=== PATIENT | female | born 1965 | race Caucasian/White ===

== ENCOUNTER 2020-03-07 11:00 | Outpatient (CLI) | payer MEDICAID, SELFPAY | END 2020-03-07 11:01 | disposition home or self-care (01) | LOC: SLEEP 03-14 16:12 | PROVIDERS: Family Provider Family Medicine; PCP Family Medicine; Visit Provider Internal Medicine Critical Care Medicine | DX: J96.11 Chronic respiratory failure with hypoxia (principal) | CPT/HCPCS: 94762 ==

== ENCOUNTER → 2020-03-30 08:20 | Outpatient (BNVA) | payer MEDICAID, SELFPAY | PROVIDERS: Family Provider Family Medicine; PCP Family Medicine; Visit Provider Internal Medicine | DX: R06.02 Shortness of breath (principal); Z20.828 Contact with and (suspected) exposure to other viral communicable diseases | CPT/HCPCS: 87635 ==

== ENCOUNTER 2020-04-03 09:27 | Outpatient (CLI) | payer MEDICAID, SELFPAY ==
--- NOTE | 2020-04-03 09:35 | USCV_ITS ---
Alexia Soto Age: 55 Gender: F : 1965 Exam Date: 04/03/2020 10:24 Ordering Phys: Laurent Perez MD Technologist: Rin Coyle Exam Location: [facility] [place] Indication: SOB BP: 157 / 71 HR: 81 Rhythm: Sinus Technical Quality: Adequate MEASUREMENTS (Male / Female) Normal Values 2D ECHO LV Diastolic Diameter PLAX 5.7 cm 4.2 - 5.9 / 3.9 - 5.3 cm LV Systolic Diameter PLAX 3.8 cm LV Chamber Size 4.3 cm IVS Diastolic Thickness 0.9 cm 0.6 - 1.0 / 0.6 - 0.9 cm IVS Systolic Thickness 1.7 cm LVPW Diastolic Thickness 0.7 cm 0.6 - 1.0 / 0.6 - 0.9 cm LVPW Systolic Thickness 1.5 cm RV Chamber Size 1.7 cm LVOT Diameter 2.0 cm LV Ejection Fraction 2D Teich 62.0 % LV Ejection Fraction MOD 2C 53.1 % LV Ejection Fraction 2C AL 53.5 % LA Diameter 3.0 cm LA Width 2.8 cm LA Height 3.0 cm RA Width 2.7 cm RA Height 2.5 cm Aorta at Sinotubular Diameter 2.8 cm M-MODE LV Diastolic Diameter MM 5.9 cm 4.2 - 5.9 / 3.9 - 5.3 cm LV Systolic Diameter MM 3.8 cm LV Ejection Fraction MM Teich 65.6 % IVS Diastolic Thickness MM 1.0 cm 0.6 - 1.0 / 0.6 - 0.9 cm IVS Systolic Thickness MM 1.1 cm LVPW Diastolic Thickness MM 1.1 cm 0.6 - 1.0 / 0.6 - 0.9 cm LVPW Systolic Thickness MM 1.3 cm RV Diastolic Diameter MM 0.7 cm Aortic Annulus Diameter 2.9 cm LA Ao Ratio MM 1.0 MV E Point Septal Separation 0.5 cm DOPPLER AV Peak Velocity 116.0 cm/s LVOT Peak Velocity 68.0 cm/s AV Area Cont Eq vti 2.2 cm squared AV Area Cont Eq pk 1.9 cm squared MV Area PHT 3.6 cm squared Mitral E to A Ratio 0.8 MV E' Velocity 4.0 cm/s Mitral E to MV E' Ratio 9.8 Mitral E to LV E' Lateral Ratio 12.5 Mitral E to LV E' Septal Ratio 8.2 TV Peak E Velocity 40.0 cm/s PV Peak Velocity 86.0 cm/s FINDINGS Left Ventricle Normal left ventricular cavity size. Normal left ventricular systolic function. No regional wall motion abnormalities. Left ventricular ejection fraction is estimated at 65 %. Grade I/IV diastolic dysfunction (abnormal relaxation filling pattern), normal to mildly elevated filling pressures. Right Ventricle The right ventricle is normal in size and function. RVSP could not be calculated due to incomplete tricuspid regurgitation velocity profile. Right Atrium The right atrium is normal in size. Left Atrium The left atrium is normal in size. Mitral Valve Structurally normal mitral valve without significant stenosis or prolapse. There is no mitral regurgitation. Aortic Valve Severe aortic valve calcification. Mild aortic valve stenosis, mean gradient 2.8 mmHg, MUKESH 2.2 cm squared. No aortic valve regurgitation. Tricuspid Valve Structurally normal tricuspid valve without significant stenosis or regurgitation. Pulmonic Valve Structurally normal pulmonic valve without significant stenosis. There is no pulmonic regurgitation. Pericardium Normal pericardium without effusion. Aorta Normal ascending aorta dimension. CONCLUSIONS 1-Normal left ventricular cavity size. Normal left ventricular systolic function. No regional wall motion abnormalities. Left ventricular ejection fraction is estimated at 65 %. Grade I/IV diastolic dysfunction (abnormal relaxation filling pattern), normal to mildly elevated filling pressures. 2-Severe aortic valve calcification. Mild aortic valve stenosis, mean gradient 2.8 mmHg, MUKESH 2.2 cm squared. No aortic valve regurgitation. 3-There is no pericardial effusion. 4-Right atrial pressure is around 5 mm of mercury. 5-When compared to the prior echocardiogram dated July 06, 2015 there appeared to be mild aortic valve stenosis now. Mami Carcamo MD (Electronically Signed) Final Date: 03 April 2020 18:07 S
[2020-04-03 10:15] VITALS: BP 130/83; BP 131/83
--- NOTE | 2020-04-03 11:26 | PFTS_ITS ---
Date of Study:04/03/20 Date of Dictation: MECHANICS: Forced vital capacity (FVC) is reduced. Forced expiratory volume in one second (FEV1) is reduced. FEV1/FVC is normal. FLOW VOLUME LOOP: Narrow. The early expiratory peak flow is not reached. Likely secondary to hesitation. LUNG VOLUMES: Total lung capacity (TLC) is increased. Residual volume (RV) is increased. DIFFUSING CAPACITY FOR CARBON MONOXIDE: Normal. INTERPRETATION: The pulmonary function tests are consistent with nonspecific ventilatory limitation. The patient has evidence of mild restriction on the spirometry however the lung volumes do not support that. Lung volumes are consistent with air trapping and hyperinflation. Gas exchange (DLCO) is normal. Given the patient's significant history of smoking she likely has a combined obstructive and restrictive defect. MTDD
== END 2020-04-03 09:28 | disposition home or self-care (01) ==
LOC: RT 09:28
PROVIDERS: Visit Provider Internal Medicine Critical Care Medicine
DX: J96.11 Chronic respiratory failure with hypoxia (principal); J42 Unspecified chronic bronchitis; I51.81 Takotsubo syndrome; I35.0 Nonrheumatic aortic (valve) stenosis
CPT/HCPCS: 93306; 94010; 94618; 94726; 94729

== ENCOUNTER → 2020-05-14 08:42 | Outpatient (BNVA) | payer MEDICAID, SELFPAY | PROVIDERS: PCP Internal Medicine; Referring Provider Internal Medicine; Visit Provider Anesthesiology Pain Medicine | DX: M50.90 Cervical disc disorder, unspecified, unspecified cervical region (principal); M54.12 Radiculopathy, cervical region; M47.812 Spondylosis without myelopathy or radiculopathy, cervical region; M47.816 Spondylosis without myelopathy or radiculopathy, lumbar region; M54.9 Dorsalgia, unspecified; M62.830 Muscle spasm of back; F17.210 Nicotine dependence, cigarettes, uncomplicated | CPT/HCPCS: 99204 ==

== ENCOUNTER → 2020-05-30 14:07 | Outpatient (BNVA) | payer MEDICAID, SELFPAY | PROVIDERS: PCP Internal Medicine; Visit Provider Anesthesiology Pain Medicine | DX: M54.12 Radiculopathy, cervical region (principal); M50.90 Cervical disc disorder, unspecified, unspecified cervical region; F17.210 Nicotine dependence, cigarettes, uncomplicated | CPT/HCPCS: 62321 ==

== ENCOUNTER 2020-05-31 11:08 | Outpatient (CLI) | payer MEDICAID, SELFPAY ==
--- NOTE | 2020-05-31 11:45 | MR_ITS ---
WS: [id number] MRI CERVICAL SPINE HISTORY: M48.02 Spinal stenosis, cervical region COMPARISON: 04/07/2018 Straightening and slight reversal normal cervical lordosis. Mild disc space narrowing and desiccation . Hypertrophic endplate osteophytes most significant at C4-C6. Signal within the cervical cord is normal. Visualized posterior fossa is unremarkable. Craniocervical junction, C1 and C2 relationship, odontoid process and soft tissues are normal. C2-C3: Normal. C3-C4: Mild annular disc bulging with a central disc protrusion and osteophytes. No significant steno sis. C4-C5: Mild annular disc bulging and osteophytic ridging. Moderate central and bilateral foraminal st enosis. Mild progression of RIGHT foraminal stenosis. C5-C6: Mild annular disc bulging and osteophytic ridging. Complete effacement of CSF ventrally. Moder ate to severe central and bilateral foraminal stenosis. C6-C7: Mild annular disc bulging and osteophytic ridging. Mild encroachment upon the ventral thecal s ac. Mild central and bilateral foraminal stenosis with no progression. C7-T1: Mild annular disc bulging and osteophytic ridging. Moderate bilateral foraminal stenosis and m ild central stenosis. Similar to the prior study. There is also very mild annular disc bulging at the T1-T2 level without encroachment upon the thecal sac. MR/MR cervical spin wo con* [id number] IMPRESSION: 1. Multilevel degenerative disc disease and stenoses without significant boyle e since 04/07/2018. 2. Moderate to severe central and bilateral foraminal stenosis at C5-6. 3. Mild central and bilateral foraminal stenosis at C4-5, C6-7 and C7-T1.
== END 2020-05-31 11:09 | disposition home or self-care (01) ==
LOC: RADSHAW 11:10
PROVIDERS: PCP Internal Medicine; Visit Provider Orthopaedic Surgery
DX: M48.02 Spinal stenosis, cervical region (principal); M50.30 Other cervical disc degeneration, unspecified cervical region; M48.03 Spinal stenosis, cervicothoracic region
CPT/HCPCS: 72141

== ENCOUNTER → 2020-06-14 13:31 | Outpatient (BNVA) | payer MEDICAID, SELFPAY | PROVIDERS: PCP Internal Medicine; Visit Provider Anesthesiology Pain Medicine | DX: M54.9 Dorsalgia, unspecified (principal); M47.812 Spondylosis without myelopathy or radiculopathy, cervical region; M54.12 Radiculopathy, cervical region; M50.90 Cervical disc disorder, unspecified, unspecified cervical region; M47.816 Spondylosis without myelopathy or radiculopathy, lumbar region; M62.830 Muscle spasm of back; F17.210 Nicotine dependence, cigarettes, uncomplicated | CPT/HCPCS: 99213 ==

== ENCOUNTER → 2020-09-10 16:13 | Outpatient (BNVA) | payer MEDICAID, SELFPAY | PROVIDERS: PCP Family Medicine; Visit Provider Orthopaedic Surgery | DX: Z20.822 Contact with and (suspected) exposure to COVID-19 (principal); Z01.812 Encounter for preprocedural laboratory examination | CPT/HCPCS: 87635 ==

== ENCOUNTER → 2020-10-05 12:17 | Outpatient (BNVA) | payer MEDICAID, SELFPAY | PROVIDERS: PCP Family Medicine; Visit Provider Orthopaedic Surgery | DX: Z20.822 Contact with and (suspected) exposure to COVID-19 (principal); M48.02 Spinal stenosis, cervical region | CPT/HCPCS: 87635 ==

== ENCOUNTER 2020-10-08 08:57 | Day surgery (SDC) | payer MEDICAID, SELFPAY ==
[2020-09-07 11:42] VITALS: BMI 34.9
--- NOTE | 2020-09-07 11:55 | ANES.PREANE2 ---
Pre-Anesthetic Assessment Pre-Anesthetic Assessment: Height/Weight: Height 1.65 m Weight 95.254 kg Preop Diagnosis: Cervical stenosis Proposed Procedure: Operation Date: 09/12/20 13:05 Proposed Procedures p Anterior Cervical Discectomy & FusionACDF C6/7 74252,74294, 13050, 2845, 98765 M48.062(Not Applicable) - Bruce Santizo, DO Familial anesthetic complications: NOne Social: Social History: Tobacco and No alcohol Exam: Pre-Anes Outpt Exam: alert, oriented x 3, clear to auscultation bilaterally and regular rate & rhythm Airway: Cervical ROM: WNL (limited extension) MP: 2 Dentition: False Pulmonary: Pulmonary: COPD (3 L NC continously) and Sleep apnea Comments: pleurisy + pneunonia in 2016 CV/HEM: CV/HEM: Angina (Stable) (normal cath - was told she had spasms (? printzmetal's)) and HTN GI: GI: GERD Metabolic: Metabolic: Thyroid Musc/skel: Musc/skel: Lower Back Pain Anesthetic Plan: ASA status: 3 Anesthesia: General Risk of > 500 ml blood loss (7ml/kg in children): No PFSH Anesthesia PFSH: Medical History Anemia Bipolar 1 disorder Blood in stool Chronic obstructive pulmonary disease Depression with anxiety Glaucoma Hyperlipidemia Hypertension Hypothyroidism Surgical History History of bladder surgery History of laparoscopic cholecystectomy History of tubal ligation History of vaginal hysterectomy (~2005) Family History Family/Other Cancer Social History Smoking and tobacco status: current every day smoker cigarettes Packs smoked per day: 1 Years cigarettes smoked: 38 Alcohol intake: never Lives independently: Yes Household members: none Marital status: Legally Current occupational status: disabled History of recent travel: No Current gender identity: Female Data Anesthesia Cardiac Studies: No Data to Display
[2020-09-12 15:08] LABS: Coronavirus Test Green County Not Detected
--- NOTE | 2020-10-05 11:24 | ANES.PREANE2 ---
Pre-Anesthetic Assessment Pre-Anesthetic Assessment: Height/Weight: Height 1.65 m Weight 95.254 kg Preop Diagnosis: Cervical stenosis Proposed Procedure: Operation Date: 09/14/20 07:00 Proposed Procedures p Anterior Cervical Discectomy & FusionACDF C6/7 86361,92313, 06503, 2845, 80477 M48.062(Not Applicable) - Bruce Santizo DO Operation Date: 10/08/20 10:35 Proposed Procedures p Anterior Cervical Discectomy & Fusion C6/C7 44727 76536 45236 20416 45697 M48.062(Not Applicable) - Bruce Santizo DO Familial anesthetic complications: NOne Social: Social History: Tobacco Exam: Pre-Anes Outpt Exam: alert, oriented x 3, clear to auscultation bilaterally and regular rate & rhythm Airway: Cervical ROM: WNL MP: 4 Dentition: False Pulmonary: Pulmonary: COPD (3 L NC continously) and Sleep apnea CV/HEM: CV/HEM: Angina (Stable) (normal cath - told she has spasms (?printzmetals)) and HTN GI: GI: GERD Metabolic: Metabolic: Thyroid Anesthetic Plan: ASA status: 3 Anesthesia: General Risk of > 500 ml blood loss (7ml/kg in children): No PFSH Anesthesia PFSH: Medical History Anemia Bipolar 1 disorder Blood in stool Chronic obstructive pulmonary disease Depression with anxiety Glaucoma Hyperlipidemia Hypertension Hypothyroidism Surgical History History of bladder surgery History of laparoscopic cholecystectomy History of tubal ligation History of vaginal hysterectomy (~2005) Family History Family/Other Cancer Social History Smoking and tobacco status: current every day smoker cigarettes Packs smoked per day: 1 Years cigarettes smoked: 38 Alcohol intake: never Lives independently: Yes Household members: none Marital status: Legally Current occupational status: disabled History of recent travel: No Current gender identity: Female Data Anesthesia Cardiac Studies: No Data to Display
[2020-10-08] VITALS (11 sets, daily range): BP systolic 127–169; BP diastolic 80–96; PULSE 82–97; RESP 16–25; TEMP 36.2–36.6; O2SAT 89–95
--- NOTE | 2020-10-08 | SCC_ITS ---
Procedure Done: 1. Anterior discectomy C6/7 2. Insertion of Cage C6/7 3. Instrumentation with anterior plate from C6-C7 4. Use of allograft Surgeon: Bruce Santizo Anesthesia: General Estimated blood loss (mL): 5 Condition: stable Disposition: PACU Procedure: 1. Anterior discectomy C6/7 2. Insertion of Cage C6/7 3. Instrumentation with anterior plate from C6-C7 4. Use of allograft 27.0 seconds of fluoroscopic guidance, for a cumulative dose of 5.95 mGy, was provided to Dr. Santizo by the radiology department. C-arm images of the cervical spine were saved for the patient's permanent record. [facility]
--- NOTE | 2020-10-08 | XR_ITS ---
WS: [id number] INTRAOPERATIVE TECHNIQUE: 4 Spot fluoroscopic images for intraoperative purposes. FLUOROSCOPY TIME: 15.3 seconds CLINICAL INFORMATION: ACDF C6/C7 COMPARISON: None. FINDINGS: Intraoperative changes ACDF C6-7. Endotracheal tube. XR/XR cervical spine 3V* [id number] IMPRESSION: Images obtained for intraoperative purposes.
[2020-10-08] MEDS: sodium chloride 0.9% 1,000 ML 30 ML IV (09:44)
--- NOTE | 2020-10-08 10:08 | P.ANESUD_ITS ---
Pre-Anesthetic Update Pre-Anesthetic Assessment: Date of Surgery/Procedure: 10/08/20 Preop Jeni gnosis: Cervical stenosis Proposed Procedure: Operation Date: 09/14/20 07:00 Proposed Procedures p Anterior Cervical Discectomy & FusionACDF C6/7 23247,61300, 15462, 2845, 50163 M48.062(Not Applicable) - Bruce Santizo, DO Operation Date: 10/08/20 10:35 Proposed Procedures p Anterior Cervical Discectomy & Fusion C6/C7 81029 71073 08280 55898 86925 M48.062(Not Applicable) - Bruce Santizo, DO Any changes to Pre-Anesthetic Assessment?: No Last Intake: Intake Last Liquid Date 10/08/20 Last Liquid Time 08:45 Last Solid Date 10/08/20 Last Solid Time 19:00 Vitals: Temperature 97.3 F L 10/08/20 09:22 Temperature Source Temporal Artery S can 10/08/20 09:22 Pulse Rate 93 10/08/20 09:22 Respiratory Rate 18 10/08/20 09:22 Blood Pressure 132/83 10/08/20 09:22 Blood Pressure Micheline n 99 10/08/20 09:22 Pulse Oximetry 95 10/08/20 09:22 Oxygen Delivery Me thod 10/08/20 09:22 Exam: Pre-Anes Outpt Exam: alert, oriented x 3, clear to auscultation bilate rally and regular rate & rhythm Cardiac Studies: No Data to Display
--- NOTE | 2020-10-08 10:13 | PM.HP ---
Providers/Chief Complaint Primary Care Provider: Judah Cohen MD Chief Complaint: ACDF C6/7 22813,49867, 41923, 3947, 15892 History of Present Illness Alexia Soto is a 55 year old female She is unable to hold a telephone to her ear or style her hair due to numbness and weakness. Onset: 20 years Duration: years Characteristics: Severity: 01/10 Location: neck Radiating symptoms: arms -bilateral right worse than left Aggravating factors: holding phone, postional, Alleviating factors: heat, Neuro deficits: denies, incontinence of bowel/bladder, saddle anesthesia. Prior tx: injections with no relief Review of Systems Narrative: Review of Systems: General: patient complains of neck pain Hematopoetic: patient denies any anemia, bleeding or easy bruisabitity CORK GRINDER: Positive for numbness to bilateral upper extremities Eye: negative for drainage Ears: patient denies any hearing loss, pain, vertigo, tinnitus Nose and throat: patient denies any congestion, postnasal drip, sore throat, epistaxis. Cardiovascular: Patient denies chest pain, edema or palpitations Respiratory: patient denies any shortness of breath, cough, sputum production GI: patient denies any nausea, vomiting, diarrhea, constipation or abdominal pain Muskuloskeletal: weakness lntegumentary: no abrasion, laceration Endocrine: patient denies polydipsia, polyphasia or nervousness. Psychiatric: negative for Medications/Allergies Home Medications Medication Instructions Recorded Confirmed Last Taken Type albuterol sulfate 90 mcg/actuation 2 puff INHALATION Q6H PRN 11/10/19 10/08/20 10/07/20 History aerosol inhaler cyanocobalamin (vitamin B-12) 1,000 mcg IM .monthly ml 11/10/19 10/08/20 09/20/20 History 1,000 mcg/mL injection solution guaifenesin 600 mg tablet, 600 mg PO BID 11/10/19 10/08/20 10/07/20 History extended release 12 hr ibuprofen 800 mg tablet 800 mg PO TID 11/10/19 10/08/20 10/07/20 History levothyroxine 100 mcg capsule 100 mcg PO DAILY 11/10/19 10/08/20 10/08/20 History lisinopril 10 mg tablet 10 mg PO DAILY 11/10/19 10/08/20 10/08/20 History methocarbamol 500 mg tablet 500 mg PO TID 11/10/19 10/08/20 10/08/20 History nitroglycerin 0.6 mg sublingual 0.6 mg SUBLINGUAL Q5M PRN 11/10/19 09/07/20 Unknown History tablet pregabalin 75 mg capsule 75 mg PO BID 11/10/19 10/08/20 10/07/20 History trazodone 50 mg tablet 50 mg PO DAILY 11/10/19 10/08/20 10/07/20 History Stiolto Respimat 2 puff INHALATION BID 10/05/20 10/08/20 10/08/20 History furosemide 20 mg PO DAILY 10/05/20 10/08/20 10/07/20 History pantoprazole 40 mg PO DAILY 10/05/20 10/08/20 10/07/20 History methadone 5 mg PO DAILY 10/08/20 10/08/20 10/08/20 History methadone 100 mg PO DAILY 10/08/20 10/08/20 10/08/20 History Allergies Allergy/AdvReac Type Severity Reaction Status Date / Time No Known Allergies Allergy Verified 06/14/20 13:40 PFSH Acute PFSH: Medical History Anemia Bipolar 1 disorder Blood in stool Chronic obstructive pulmonary disease Depression with anxiety Glaucoma Hyperlipidemia Hypertension Hypothyroidism Surgical History History of bladder surgery History of laparoscopic cholecystectomy History of tubal ligation History of vaginal hysterectomy (~2005) Family History Family/Other Cancer Social History Smoking and tobacco status: current every day smoker cigarettes Packs smoked per day: 1 Years cigarettes smoked: 38 Alcohol intake: never Lives independently: Yes Household members: none Marital status: Legally Current occupational status: disabled History of recent travel: No Current gender identity: Female Vitals/I&O/Wt Last Vital Signs Temp 97.3 F L 10/08/20 09:22 Pulse 93 10/08/20 09:22 Resp 18 10/08/20 09:22 BP 132/83 10/08/20 09:22 Pulse Ox 95 10/08/20 09:22 Physical Exam Narrative: EXAM NARRATIVE: CONSTITUTIONAL: The patient is a normal appearing [] in no apparent distress. GENERAL: Patient in no acute distress. CARDIAC: Regular rate and rhythm. CHEST: Normal inspiratory effort, normal respiratory rate. ABDOMEN: Soft and nontender. SKIN: Clear, warm and intact. NEURO?PSYCH: The patient is alert and oriented to person, place and time. Sensorv /SILT Motor StrengthShoulder abduction C5 5/5Wrist extension C6 5/5Elbow extension C7 5/5Hand Merchandise Flow Team Member C8 5/5Finger abduction T15/5 Radial/ Ulnar/ Median n intact LowerSensory (SILT)Motor StrengthHin flexion L2/3Ant/inner thigh 5/5Hip adduction L2/3 5/5Knee extension L4 Lat thigh, 5/5Toe dorsiflexion L5 5/5Ankle dorsiflexion L5/ H92Upkseyl flexion S1 5/5 DTRBleeps 2+Triceps 2+Brachioradialis 2+Patellar 2+Achilles 2+ MUSCULOSKELETAL: [] UPPEREXTREMITIES: The patient had full active ROM in fingers, wrist, elbow, and shoulder. The patient demonstrated ability to fully flex/extend/abduct/adduct fingers, make ok sign, cross 2nd/3rd digits, extend 1st digit fully.. Radial pulse 2+, CR<2 seconds. LOWER EXTREMITIES: Pt has full, active ROM of toes, ankle, knee, and hip. Dorsalis pedis/posterior tibialis pulses 2+, CR<2 seconds. SPINE: Skin warm, dry, intact. A&P Assessment and plan (1) Cervical stenosis of spinal canal: C6/7 ACDF Status: Acute Attestations Medical Necessity Statement*: failed conservative tx Coding Level of Care Code Acute Health Concierge for [facility] Fwd Diagnoses Cervical stenosis of spinal canal M48.02
--- NOTE | 2020-10-08 10:16 | W.PM.OPSUD ---
Surgery/Procedure H&P Update DATE OF PROCEDURE: October 08, 2020 DATE H&P PERFORMED: 10/08/20 H&P UPDATE INFORMATION: I have reviewed H&P completed within last 30 days, I have examined patient prior to procedure and No changes to prior documentation PREOP DIAGNOSIS: Cervical stenosis PLANNED PROCEDURE: Operation Date: 09/14/20 07:00 Proposed Procedures p Anterior Cervical Discectomy & FusionACDF C6/7 66708,02220, 43667, 2845, 79227 M48.062(Not Applicable) - Bruce Santizo DO Operation Date: 10/08/20 10:35 Proposed Procedures p Anterior Cervical Discectomy & Fusion C6/C7 28906 33430 12987 69551 17214 M48.062(Not Applicable) - Bruce Santizo DO
--- NOTE | 2020-10-08 12:45 | PM.OP ---
Operative Report Date of procedure: October 08, 2020 Pre-op Diagnosis: Cervical stenosis Post-op diagnosis: same Procedure Done: 1. Anterior discectomy C6/7 2. Insertion of Cage C6/7 3. Instrumentation with anterior plate from C6-C7 4. Use of allograft Surgeon: Bruce Santizo Anesthesia: General Estimated blood loss (mL): 5 Condition: stable Disposition: PACU Procedure: 1. Anterior discectomy C6/7 2. Insertion of Cage C6/7 3. Instrumentation with anterior plate from C6-C7 4. Use of allograft The patient was taken to the operating room, where he underwent general endotracheal anesthesia without complications. He was then positioned supine on the operating table, and all areas of impingement were well padded. The arms were carefully padded and tucked at his sides. A roll was placed between the shoulder blades.. An x-ray was done to determine the appropriate level for the skin incision. The entire neck was then sterilely prepped and draped in the usual fashion. Neuromonitoring was attached prior to prepping. A transverse skin incision was made and carried down to the platysma muscle. This was then split in line with its fibers. Blunt dissection was carried down medial to the carotid sheath and lateral to the trachea and esophagus until the anterior cervical spine was visualized. A needle was placed into a disc and an x-ray was done to determine its location. The longus colli muscles were then elevated bilaterally with the electrocautery unit. Self-retaining retractors were placed deep to the longus colli muscle. Attention was brought to the 6/7 level that was confirmed on x-ray. A caspar pin was placed into the C6 vertebrae and the C7 vertebrae. The disk space was then distracted. The microscope was then brought in. A radical anterior discectomies were performed at C6/7. This included complete removal of the anterior annulus, nucleus, and posterior annulus. The posterior longitudinal ligament was removed as were the posterior osteophytes. Foraminotomies were then accomplished bilaterally. This was done using a high speed ailyn, kerrison rongeurs and curretes Once all of this was accomplished, the curved currette was used to check for any residual compression. The central canal was wide open as were the foramen. A high-speed bur was used to remove the cartilaginous endplates above and below the interspace. Bleeding cancellous bone was exposed. The disc space were measured and appropriate size cage were placed sterilely onto the field. Allograft graft was packed into the cages. The cage was then placed and there was good juxtaposition against the bleeding decorticated surfaces and good distraction of each interspace. The [place] pins were removed. Bone wax was used to prevent any bleeding from occurring at the pin sites. The appropriate size anterior cervical locking plate was chosen and bent into gentle lordosis. Two screws were then placed into each of the vertebral bodies at C6/7. There was excellent purchase. A final x-ray was done confirming good position of the hardware and Cages. The locking screws were then applied, also with excellent purchase. Following a final copious irrigation, there was good hemostasis and no dural leaks. The carotid pulse was strong. The wounds were then closed in layers using 2-0 Vicryl suture for the platysma muscle, 2-0 Vicryl suture for the subcutaneous tissue, and 4-0 monocryl suture in a subcuticular skin closure. Glue was placed followed by application of a sterile dressing. The drain was hooked to bulb suction. A soft collar was applied. The patient was then carefully returned to the supine position on his hospital bed where he was reversed and extubated and taken to the recovery room having tolerated the procedure well.
[2020-10-08] MEDS: ipratropium 0.5 mg/2.5 mL Neb INHALATION (13:26)
--- NOTE | 2020-10-08 17:01 | P.ANESUD_ITS ---
Pre-Anesthetic Update Pre-Anesthetic Assessment: Date of Surgery/Procedure: 10/08/20 Preop Jeni gnosis: Cervical stenosis Proposed Procedure: Operation Date: 09/14/20 07:00 Proposed Procedures p Anterior Cervical Discectomy & FusionACDF C6/7 95947,39887, 01108, 2845, 19841 M48.062(Not Applicable) - Bruce Santizo, DO Operation Date: 10/08/20 10:35 Proposed Procedures p Anterior Cervical Discectomy & Fusion C6/C7 92151 88351 58376 92340 25343 M48.062(Not Applicable) - Bruce Santizo, DO Any changes to Pre-Anesthetic Assessment?: No Last Intake: Intake Last Liquid Date 10/08/20 Last Liquid Time 08:45 Last Solid Date 10/08/20 Last Solid Time 19:00 Vitals: Temperature 97.8 F 10/08/20 14:24 Temperature Source Temporal Artery S can 10/08/20 14:24 Pulse Rate 88 10/08/20 14:24 Respiratory Rate 20 H 10/08/20 14:24 Blood Pressure 127/80 10/08/20 14:24 Blood Pressure Micheline n 95 10/08/20 14:24 Pulse Oximetry 93 10/08/20 14:24 Oxygen Delivery Me thod 10/08/20 14:24 Oxygen Flow Rate 3 10/08/20 14:24 Exam: Pre-Anes Outpt Exam: alert, oriented x 3, clear to auscultation bilaterally and regular rate & rhythm Cardiac Studies: No Data to Display
--- NOTE | 2020-10-08 17:02 | ANE.PACU2 ---
Inpatient post-anesthesia follow up: Airway intact: Yes Vital signs: Temperature 97.8 F Pulse Rate 88 Respiratory Rate 20 Blood Pressure 127/80 Pulse Oximetry 93 Oxygen Delivery Me thod Nasal Cannula Oxygen Flow Rate 3 Fraction of Inspir ed Oxygen Hydration adequate: Yes Nausea and vomiting: No Pain level: 2 Mental status: Baseline
== END 2020-10-08 15:00 | disposition home or self-care (01) ==
PROVIDERS: PCP Family Medicine; Visit Provider Orthopaedic Surgery
PROC: 0RB30ZZ Excision of Cervical Vertebral Disc, Open Approach (ICD-10-PCS; CPT 22551; principal; 2020-10-08 10:25)
DX: M48.02 Spinal stenosis, cervical region (principal); E78.5 Hyperlipidemia, unspecified; I10 Essential (primary) hypertension; E03.9 Hypothyroidism, unspecified; F17.210 Nicotine dependence, cigarettes, uncomplicated; J44.9 Chronic obstructive pulmonary disease, unspecified; Z99.81 Dependence on supplemental oxygen; G47.30 Sleep apnea, unspecified
CPT/HCPCS: 20930; 22551; 22853 ×2; 72040; 76000; 87635; C1713; C9359; J0330; J0690; J1100; J2310; J2405; J2704; J3010; J3490; J7030; J7611; J7644

== ENCOUNTER → 2020-11-22 10:11 | Outpatient (BNVA) | payer MEDICAID, SELFPAY | PROVIDERS: PCP Family Medicine; Visit Provider Orthopaedic Surgery | DX: Z48.89 Encounter for other specified surgical aftercare (principal); M48.02 Spinal stenosis, cervical region | CPT/HCPCS: 72040 ==

== ENCOUNTER → 2021-01-10 10:45 | Outpatient (BNVA) | payer MEDICAID, SELFPAY | PROVIDERS: PCP Family Medicine; Visit Provider Orthopaedic Surgery | DX: Z48.89 Encounter for other specified surgical aftercare (principal); M48.062 Spinal stenosis, lumbar region with neurogenic claudication; Z98.1 Arthrodesis status; M47.812 Spondylosis without myelopathy or radiculopathy, cervical region; M47.816 Spondylosis without myelopathy or radiculopathy, lumbar region | CPT/HCPCS: 72040; 72110 ==

== ENCOUNTER 2021-02-14 08:03 | Outpatient (CLI) | payer MEDICAID, SELFPAY ==
--- NOTE | 2021-02-14 08:00 | MR_ITS ---
WS: [id number] MRI LUMBAR SPINE NONCONTRAST TECHNIQUE: Sagittal T1, T2 and STIR imaging. Axial T1 and T2 imaging. CLINICAL INFORMATION: SPINAL STENOSIS LUMBAR REGION W/NEUROGENIC CLAUDICATION COMPARISON: None. FINDINGS: Mild lumbar curve. No acute compression. No high-grade central canal stenosis. Endplate degenerative changes L4-L5 and L5-S1 worse L5-S1. L1-L2: Normal. L2-L3: No significant disc bulging. Mild facet arthropathy. Spinal canal and foramen are patent. L3-L4: No significant disc bulging. Moderate facet arthropathy. Spinal canal and foramen are patent. L4-L5: Mild annular bulging with slight effacement of the ventral thecal sac. Slight impingement on t he traversing right greater than left L5 nerve roots. Foramen are patent. Moderate facet arthropathy. Ligamentum flavum hypertrophy. This is similar to 2017. L5-S1: Mild disc bulging with osteophytic ridging. Slight effacement of the ventral thecal sac. Right eccentric disc bulging slightly encroaches on the far exiting right L5 nerve root unchanged from pre vious. Left foramen is patent. Moderate facet arthropathy. Spinal canal is patent. Visualized pelvic bony structures: Normal. Paravertebral soft tissues: Normal. MR/MR lumbar spine wo con* [id number] IMPRESSION: 1. No significant interval changes since 2017. 2. Mild lumbar curve. No acute compression. No high-grade central canal stenos is. 3. Annular bulging L4-5 with slight impingement traversing L5 nerve roots bila terally. Foramen are patent. 4. Mild disc bulging with osteophytic ridging L5-S1 eccentric to the right sli ghtly encroaches on the far exiting right L5 nerve root. This is unchanged from previous. 5. Moderate facet arthropathy L4-L5 and L5-S1 with ligamentum flavum hypertrop hy.
== END 2021-02-14 08:04 | disposition home or self-care (01) ==
LOC: RADSHAW 08:06
PROVIDERS: PCP Family Medicine; Visit Provider Orthopaedic Surgery
DX: M48.062 Spinal stenosis, lumbar region with neurogenic claudication (principal); M51.26 Other intervertebral disc displacement, lumbar region; M47.816 Spondylosis without myelopathy or radiculopathy, lumbar region; M47.817 Spondylosis without myelopathy or radiculopathy, lumbosacral region
CPT/HCPCS: 72148

== ENCOUNTER → 2021-03-20 10:50 | Outpatient (BNVA) | payer MEDICAID, SELFPAY | PROVIDERS: PCP Family Medicine; Visit Provider Orthopaedic Surgery | DX: Z01.812 Encounter for preprocedural laboratory examination (principal); Z20.822 Contact with and (suspected) exposure to COVID-19 | CPT/HCPCS: 87635 ==

== ENCOUNTER 2021-03-25 06:13 | Day surgery (SDC) | payer MEDICAID, SELFPAY ==
[2021-03-22 12:03] VITALS: BMI 33.3
--- NOTE | 2021-03-22 12:27 | ANES.PREANE2 ---
Pre-Anesthetic Assessment Pre-Anesthetic Assessment: Height/Weight: Height 1.65 m Weight 90.718 kg Preop Diagnosis: Cervical stenosis Proposed Procedure: Operation Date: 03/25/21 07:00 Proposed Procedures p Lumbar Spine Decompression L3/4 L4/5 L5/[id number] M48.062(Not Applicable) - Bruce Santizo, DO Familial anesthetic complications: None Social: Social History: Tobacco and No alcohol Exam: Pre-Anes Outpt Exam: alert, oriented x 3, clear to auscultation bilaterally and regular rate & rhythm Airway: Cervical ROM: WNL MP: 4 Dentition: False Pulmonary: Pulmonary: COPD (3 L NC continously) and Sleep apnea CV/HEM: CV/HEM: Angina (Stable) and HTN Comments: normal cath - [employer] GI: GI: GERD Metabolic: Metabolic: Thyroid Anesthetic Plan: ASA status: 4 Anesthesia: General Risk of > 500 ml blood loss (7ml/kg in children): No PFSH Anesthesia PFSH: Medical History (Updated 02/19/21 @ 09:19 by Jignesh Agudelo LPN) Anemia Bipolar 1 disorder Blood in stool Chronic obstructive pulmonary disease Depression with anxiety Glaucoma Hyperlipidemia Hypertension Hypothyroidism Surgical History History of bladder surgery History of laparoscopic cholecystectomy History of tubal ligation History of vaginal hysterectomy (~2005) Family History Family/Other Cancer Social History Smoking and tobacco status: current every day smoker (1/2 jude) cigarettes Packs smoked per day: 1 Years cigarettes smoked: 38 Alcohol intake: never Lives independently: Yes Household members: none Marital status: Legally Current occupational status: disabled History of recent travel: No Current gender identity: Female Data Anesthesia Cardiac Studies: No Data to Display
[2021-03-25] VITALS (10 sets, daily range): BP systolic 93–179; BP diastolic 58–89; PULSE 76–90; RESP 17–20; TEMP 36.1–36.4; O2SAT 94–98
--- NOTE | 2021-03-25 | SCC_ITS ---
Procedure done: 1. Bilateral L3/4 laminectomy with partial facectomies 2.Bilateral L4/5 laminectomy with partial facectomies 3. Bilateral L5/S1 laminectomy with partial facectomies. 28.1 seconds of fluoroscopic guidance, for a cumulative dose of 14.67 mGy, was provided to Dr. Santizo by the radiology department. C-arm images of the lumbar spine were saved for the patient's permanent record. [facility]
--- NOTE | 2021-03-25 | XR_ITS ---
WS: [id number] Exam: XR lumbar spine 1V port [id number] Date/Time of Exam: 03/25/2021 12:00 AM Reason For Exam: lumbar stenosis Anterior posterior intraoperative C-arm images of the lumbar spine are submitted for evaluation. The images depict a metallic port superimposing the L3-4, the L4-5 and the L5-S1 disc levels. No othe r significant finding on this limited series.
--- NOTE | 2021-03-25 06:40 | PM.HP ---
Providers/Chief Complaint Primary Care Provider: Judah Cohen MD Chief Complaint: lumbar stenosis History of Present Illness Alexia Soto is a 56 year old female She describes weakness when trying to get into her car. Onset: years Duration: years Characteristics: aching, throbbing, burning, weakness, numbness and tingles to lower extremities, Severity:02/09 Location: low back Radiating symptoms: bilateral lower extremities, left lateral lower extremity, right medial lower extremity. Aggravating factors: walking,sitting, lifting lower extremities Alleviating factors: heat, rest, changing position without relief Neuro deficits:denies: incontinence of bowel/bladder, saddle anesthesia. Prior tx: 4-5 epidural injection without relief with the last one being several years ago. Associated symptoms: Denies abdominal pain, chills, fever(s), nausea or vomiting Review of Systems Narrative: General ROS: negative for weight changes, fever ENT ROS: negative for nasal congestion, drainage or bleeding, sore throat, dysphagia or ear pain Eyes: PERRL Hematological and Lymphatic ROS: negative for swollen glands or abnormal bleeding Endocrine ROS: negative for polyuria/polydpsia or new changes in weight Respiratory ROS: negative for cough, shortness of breath, or wheezing Cardiovascular ROS: negative for chest pain or dyspnea on exertion Gastrointestinal ROS: negative for reflux, abdominal pain, change in bowel habits, or black or bloody stools Musculoskeletal ROS: negative for back pain, neck pain, or joint pain or swelling except for current problem Neurological ROS: negative for TIA or stoke symptoms Skin: no rashe Medications/Allergies Home Medications Medication Instructions Recorded Confirmed Last Taken Type albuterol sulfate 90 mcg/actuation 2 puff INHALATION Q6H PRN 11/10/19 03/22/21 10/07/20 History aerosol inhaler cyanocobalamin (vitamin B-12) 1,000 mcg IM .monthly ml 11/10/19 03/22/21 09/20/20 History 1,000 mcg/mL injection solution guaifenesin 600 mg tablet, 600 mg PO BID 11/10/19 03/22/21 10/07/20 History extended release 12 hr ibuprofen 800 mg tablet 800 mg PO TID 11/10/19 03/22/21 10/07/20 History levothyroxine 100 mcg capsule 100 mcg PO DAILY 11/10/19 03/22/21 10/08/20 History methocarbamol 500 mg tablet 500 mg PO TID 11/10/19 03/22/21 10/08/20 History nitroglycerin 0.6 mg sublingual 0.6 mg SUBLINGUAL Q5M PRN 11/10/19 03/22/21 Unknown History tablet pregabalin 75 mg capsule 75 mg PO BID 11/10/19 03/22/21 10/07/20 History trazodone 50 mg tablet 50 mg PO DAILY 11/10/19 03/22/21 10/07/20 History pantoprazole 40 mg PO DAILY 10/05/20 03/22/21 10/07/20 History methadone 5 mg PO DAILY 10/08/20 03/22/21 10/08/20 History methadone 100 mg PO DAILY 10/08/20 03/22/21 10/08/20 History furosemide 20 mg tablet See Rx Instructions .ROUTE 01/14/21 03/22/21 Unknown Rx .COMPLEX #30 tablet tiotropium 2.5 mcg-olodaterol 2.5 See Rx Instructions .ROUTE 01/14/21 03/22/21 Unknown Rx mcg/actuation mist for inhalation .COMPLEX #4 milliliter lisinopril 10 mg tablet 20 mg PO DAILY tab 02/19/21 03/22/21 Unknown History atorvastatin 40 mg PO DAILY 03/22/21 03/22/21 Unknown History fluticasone propion-salmeterol INHALATION 03/22/21 Unknown History [Advair Diskus] escitalopram oxalate 20 mg PO DAILY 03/25/21 03/25/21 03/25/21 04:30 History Allergies Allergy/AdvReac Type Severity Reaction Status Date / Time No Known Allergies Allergy Verified 03/22/21 12:07 PFSH Acute PFSH: Medical History (Updated 02/19/21 @ 09:19 by Jignesh Agudelo LPN) Anemia Bipolar 1 disorder Blood in stool Chronic obstructive pulmonary disease Depression with anxiety Glaucoma Hyperlipidemia Hypertension Hypothyroidism Surgical History History of bladder surgery History of laparoscopic cholecystectomy History of tubal ligation History of vaginal hysterectomy (~2005) Family History Family/Other Cancer Social History Smoking and tobacco status: current every day smoker (1/2 jude) cigarettes Packs smoked per day: 1 Years cigarettes smoked: 38 Alcohol intake: never Lives independently: Yes Household members: none Marital status: Legally Current occupational status: disabled History of recent travel: No Current gender identity: Female Vitals/I&O/Wt Last Vital Signs Temp 97 F L 03/25/21 06:21 Pulse 76 03/25/21 06:21 Resp 18 03/25/21 06:21 BP 164/83 03/25/21 06:21 Pulse Ox 96 03/25/21 06:21 Physical Exam Narrative: EXAM NARRATIVE: CONSTITUTIONAL: The patient is a normal appearing [] in no apparent distress. GENERAL: Patient in no acute distress. CARDIAC: Regular rate and rhythm. CHEST: Normal inspiratory effort, normal respiratory rate. ABDOMEN: Soft and nontender. SKIN: Clear, warm and intact. NEURO?PSYCH: The patient is alert and oriented to person, place and time. Sensorv /SILT Motor StrengthShoulder abduction C5 5/5Wrist extension C6 5/5Elbow extension C7 5/5Hand Boom Crane Operator C8 5/5Finger abduction T15/5 Radial/ Ulnar/ Median n intact LowerSensory (SILT)Motor StrengthHin flexion L2/3Ant/inner thigh 5/5Hip adduction L2/3 5/5Knee extension L4 Lat thigh, 5/5Toe dorsiflexion L5 5/5Ankle dorsiflexion L5/ [id number] flexion S1 5/5 DTRBleeps 2+Triceps 2+Brachioradialis 2+Patellar 2+Achilles 2+ MUSCULOSKELETAL: [] UPPEREXTREMITIES: The patient had full active ROM in fingers, wrist, elbow, and shoulder. The patient demonstrated ability to fully flex/extend/abduct/adduct fingers, make ok sign, cross 2nd/3rd digits, extend 1st digit fully.. Radial pulse 2+, CR<2 seconds. LOWER EXTREMITIES: Pt has full, active ROM of toes, ankle, knee, and hip. Dorsalis pedis/posterior tibialis pulses 2+, CR<2 seconds. SPINE: Skin warm, dry, intact. A&P Assessment and plan (1) Lumbar stenosis with neurogenic claudication: MIS lumbar decompression Status: Acute Attestations Medical Necessity Statement*: failed conservative tx Coding Level of Care Code Acute Spring Setter for Chg Fwd Diagnoses Lumbar stenosis with neurogenic claudication M48.062
--- NOTE | 2021-03-25 06:51 | P.ANESUD_ITS ---
Pre-Anesthetic Update Pre-Anesthetic Assessment: Date of Surgery/Procedure: 03/25/21 Preop Jeni gnosis: lumbar stenosis Proposed Procedure: Operation Date: 03/25/21 07:00 Proposed Procedures p Lumbar Spine Decompression L3/4 L4/5 L5/[id number] M48.062(Not Applicable) - Bruce Santizo, DO Any changes to Pre-Anesthetic Assessment?: No Last Intake: Intake Last Liquid Date 03/24/21 Last Liquid Time 19:00 Last Solid Date 03/24/21 Last Solid Time 19:00 Vitals: Temperature 97 F L 03/25/21 06:21 Temperature Source Temporal Artery S can 03/25/21 06:21 Pulse Rate 76 03/25/21 06:21 Respiratory Rate 18 03/25/21 06:21 Blood Pressure 164/83 03/25/21 06:21 Blood Pressure Micheline n 110 03/25/21 06:21 Pulse Oximetry 96 03/25/21 06:21 Oxygen Delivery Me thod 03/25/21 06:26 Oxygen Flow Rate 3 03/25/21 06:26 Exam: Pre-Anes Outpt Exam: alert, oriented x 3 and regular rate & rhythm Additional Exam Findings (including area of procedure): Rhonchi, smoker on home O2 Cardiac Studies: No Data to Display
[2021-03-25] MEDS: sodium chloride 0.9% 1,000 ML 30 ML IV (06:53)
--- NOTE | 2021-03-25 08:55 | SUR.PHASEI ---
PT TO PACU SLEEPY WITH GOOD RESP NOTED PT SX WITH PRADIP FOR COPIUS CLEAR SECRETIONS, PT OPENS EYES BUT DOES NOT ACKNOWLEDGE STAFF, VSS PT SITTING IN UPRIGHT POSITION, IV PATENT.
--- NOTE | 2021-03-25 09:15 | P.OP_ITS ---
Operative Report Date of procedure: March 25, 2021 Pre-op Diagnosis: lumbar stenosis Post-op diagnosis: same Procedure Done: 1. Bilateral L3/4 laminectomy with partial facetectomies 2. Bilateral L3/4 laminectomy with partial facetectomies 3. Bilateral L3/4 laminectomy with partial facetectomies Surgeon: Bruce Santizo Anesthesia: General Estimated blood loss (mL): 5 Condition: stable Disposition: PACU Procedure: 1. Bilateral L3/4 laminectomy with partial facetectomies 2. Bilateral L3/4 laminectomy with partial facetectomies 3. Bilateral L3/4 laminectomy with partial facetectomies Patient is brought to the operative suite. After undergoing anesthesia they are placed in the supine position. All areas of impingement are well padded. Patient is then prepped and draped in the normal sterile fashion. A skin incision is made over the L3/4 level. This is confirmed under c-arm guidance. A series of dilators are passed and the tubular retractor is docked on the L3 lamina. A bovie is used to clear the soft tissue off the lamina and the L 3/4 facet joint. A high speed ailyn is then used to perform the laminectomy and take down the medial aspect of the L 3/4 facet joint. A kerrison rongeure was then used to take down the remaining lamina and smooth the edged of the laminectomy up to the point where the ligamentum flavum attaches. Attention was then brought to the medial aspect of the facet joint. The remaining medial aspect of the superior and inferior aspect of the facet joint were taken down with the kerrison from the pedicle of L3 to L 4. The facet joint had significant hypertrophy. Attention was then brought to the Ligamentum Flavum. The ligament was taken down from the lamina of L3 to L4 and out medially to the remaining facet joint. The ligament was thick. The dura was then exposed. The dura was in good repair. The L3 nerve was then traced with a curette out the L3/4 foramen and found to be adequately decompressed. The L4 nerve was traced with a curette around the L4 pedicle. The lateral recess was opened with a kerrison helping to further decompress the L4 nerve. The tubular retractor was then tilted to the contralateral side. The bovie was used to take down the soft tissue on the spinous process. The high speed ailyn was used to take down the spinous process and then the contralateral lamina of L3. The kerrison rongeur was used to take down the remaining lamina to the point where the ligamentum flavum attached and the ligamentum flavum was taken down from L3 to L4. The kerrison rongeur was then used to reach across and take down the medial aspect of the contralateral L3/4 facet joint.The currete was used to trace the contralateral L3 nerve out the L3/4 foramen to make sure it was decompressed adequatesly and the L4 was traced around the L4 pedicle. The lateral recess was opened further with the kerrison to ensure the L4 is adequately decompressed. A skin incision is made over the L4/5 level. This is confirmed under c-arm guidance. A series of dilators are passed and the tubular retractor is docked on the L4 lamina. A bovie is used to clear the soft tissue off the lamina and the L 4/5 facet joint. A high speed ailyn is then used to perform the laminectomy and take down the medial aspect of the L 4/5 facet joint. A kerrison rongeure was then used to take down the remaining lamina and smooth the edged of the laminectomy up to the point where the ligamentum flavum attaches. Attention was then brought to the medial aspect of the facet joint. The remaining medial aspect of the superior and inferior aspect of the facet joint were taken down with the kerrison from the pedicle of L4 to L 5. The facet joint had significant hypertrophy. Attention was then brought to the Ligamentum Flavum. The ligament was taken down from the lamina of L4 to L5 and out medially to the remaining facet joint. The ligament was thick. The dura was then exposed. The dura was in good repair. The L4 nerve was then traced with a curette out the L4/5 foramen and found to be adequately decompressed. The L5 nerve was traced with a curette around the L5 pedicle. The lateral recess was opened with a kerrison helping to further decompress the L5 nerve. The tubular retractor was then tilted to the contralateral side. The bovie was used to take down the soft tissue on the spinous process. The high speed ailyn was used to take down the spinous process and then the contralateral lamina of L4. The kerrison rongeur was used to take down the remaining lamina to the point where the ligamentum flavum attached and the ligamentum flavum was taken down from L4 to L5. The kerrison rongeur was then used to reach across and take down the medial aspect of the contralateral L4/5 facet joint.The currete was used to trace the contralateral L4 nerve out the L4/5 foramen to make sure it was decompressed adequatesly and the L5 was traced around the L5 pedicle. The lateral recess was opened further with the kerrison to ensure the L5 is adequately decompressed. A skin incision is made over the L5/S1 level. This is confirmed under c-arm guidance. A series of dilators are passed and the tubular retractor is docked on the L5 lamina. A bovie is used to clear the soft tissue off the lamina and the L 5/S1 facet joint. A high speed ailyn is then used to perform the laminectomy and take down the medial aspect of the L 5/S1 facet joint. A kerrison rongeure was then used to take down the remaining lamina and smooth the edged of the laminectomy up to the point where the ligamentum flavum attaches. Attention was then brought to the medial aspect of the facet joint. The remaining medial aspect of the superior and inferior aspect of the facet joint were taken down with the kerrison from the pedicle of L5 to S1. The facet joint had significant hypertrophy. Attention was then brought to the Ligamentum Flavum. The ligament was taken down from the lamina of L5 to S1 and out medially to the remaining facet joint. The ligament was thick. The dura was then exposed. The dura was in good repair . The L5 nerve was then traced with a curette out the L5/S1 foramen and found to be adequately decompressed. The S1 nerve was traced with a curette around the S1 pedicle. The lateral recess was opened with a kerrison helping to further decompress the S1 nerve. The tubular retractor was then tilted to the contralateral side. The bovie was used to take down the soft tissue on the spinous process. The high speed ailyn was used to take down the spinous process and then the contralateral lamina of L5. The kerrison rongeur was used to take down the remaining lamina to the point where the ligamentum flavum attached and the ligamentum flavum was taken down from L5 to S1. The kerrison rongeur was then used to reach across and take down the medial aspect of the contralateral L5/S1 facet joint.The currete was used to trace the contralateral L5 nerve out the L5/S1 foramen to make sure it was decompressed adequatesly and the S1 was traced around the S1 pedicle. The lateral recess was opened further with the kerrison to ensure the S1 is adequately decompressed. Wound is then irrigated copiously with saline and surgiflo is used to stop any bleeding. The tubular retractor is removed and the wound is closed with vicryl and monocryl suture. Glue is then used to protect the wound. A sterile dressing is then placed. Patient was then placed in the supine position and transferred to the PACU in stable condition.
--- NOTE | 2021-03-25 09:17 | SUR.PHASEI ---
0912 PT HAS BEEN AWAKE, INSISTS ON SITTING UPRIGHT WITH LEGS CROSSED SAMMARINESE STYLE, GOOD RESP EFFORT NO DISTRESS, PT DOZING OFF AND ON, WHEN AWAKE BRIAN (IT HURTS) BUT UNABLE TO GIVE A NUMBER, PT ENCOURAGED TO LY BACK AND REST BACK MUSCLES, PT REFUSED LOWER BACK DRESSING D/I PT OK TO GO TO OPS AND TAKE PO PAIN MED.
[2021-03-25] MEDS: HYDROcodone-acetaminophen 5-325 mg Tablet 2 TAB PO (09:51)
--- NOTE | 2021-03-25 10:00 | PC.NURSE ---
PT STATES SHE WILL NOT NEED TO GET HYDROCODONE SCRIPT FILLED. STATES SHE GETS HER MEDS FROM [facility].
--- NOTE | 2021-03-25 15:39 | ANE.PACU2 ---
Inpatient post-anesthesia follow up: Airway intact: Yes Vital signs: Temperature 97.2 F Pulse Rate 78 Respiratory Rate 18 Blood Pressure 111/58 Pulse Oximetry 96 Oxygen Delivery Me thod Nasal Cannula Oxygen Flow Rate 3 Fraction of Inspir ed Oxygen 100 Hydration adequate: Yes Nausea and vomiting: No Pain level: 3 Mental status: Baseline
== END 2021-03-25 10:15 | disposition home or self-care (01) ==
PROVIDERS: PCP Family Medicine; Visit Provider Orthopaedic Surgery
PROC: (CPT 63005; principal; 2021-03-25 07:00)
DX: M48.062 Spinal stenosis, lumbar region with neurogenic claudication (principal); E78.5 Hyperlipidemia, unspecified; I10 Essential (primary) hypertension; E03.9 Hypothyroidism, unspecified; J44.9 Chronic obstructive pulmonary disease, unspecified; F17.210 Nicotine dependence, cigarettes, uncomplicated; Z99.81 Dependence on supplemental oxygen
CPT/HCPCS: 63047; 63048 ×2; 72020; 76000; J0690; J1100; J1200; J2405; J2704; J2710; J3010; J3490; J7030

== ENCOUNTER 2021-04-25 11:17 | Outpatient (CLI) | payer MEDICAID, SELFPAY ==
--- NOTE | 2021-04-25 11:22 | CT_ITS ---
WS: [id number] LDCT LUNG CANCER SCREENING TECHNIQUE: Noncontrast CT of the chest with coronal and sagittal reformatted images. CLINICAL INFORMATION: HX OF TOBACCO USE/NICTOTINE DEPENDENCE, CIGARETTES COMPARISON: CT chest May 2016 DLP: 53.79 mGy.cm DIvol: 1.[address] scans at [facility] use at least one of these dose optimization techniques: automat ed exposure control; mA and/or kV adjustment per patient size (includes targeted exams where dose is matched to clinical indication); or iterative reconstruction. FINDINGS: Both lungs are well aerated. No acute pulmonary infiltrates. No consolidation or pleural fluid. Emily l caliber thoracic aorta. Prominent right paratracheal lymph node measuring 11 mm unchanged since 201 6. Normal GE junction. Fibrosis in the lung apices. A few calcified granulomas. Postoperative changes lo wer cervical spine. CT/CT lung screening [id number] IMPRESSION: LUNG-RADS: 2-Benign Appearance or Behavior FOLLOW UP: 12 Month: Continue annual screening with LDCT
== END 2021-04-25 11:18 | disposition home or self-care (01) ==
LOC: CT 11:17
PROVIDERS: PCP Family Medicine; Visit Provider Family Medicine
DX: Z12.2 Encounter for screening for malignant neoplasm of respiratory organs (principal); F17.210 Nicotine dependence, cigarettes, uncomplicated
CPT/HCPCS: 71271

== ENCOUNTER 2021-05-23 09:36 | Outpatient (CLI) | payer MEDICAID, SELFPAY ==
--- NOTE | 2021-05-23 09:43 | MM_ITS ---
WS: [id number] SCREENING DIGITAL MAMMOGRAM WITH CAD HISTORY: SCREENING COMPARISON: 07/20/2019, 03/29/2018 and 01/20/2017 Bilateral CC and MLO views submitted. Computer aided detection analyzed. Breast composition: The breasts are heterogeneously dense, which may obscure small masses. Increase i n the asymmetry and density in the anterior RIGHT breast on the CC projection only. There is addition al asymmetry in the central posterior LEFT breast on the CC projection. Both of these areas need yahir tional imaging. MM/[place] [id number] IMPRESSION: BI-RADS: 0-Incomplete: Need additional imaging evaluation FOLLOW UP: Need Additional Imaging RIGHT breast: Spot compression views (CC ). True ML. Ultrasound to follow if ab normality persists. LEFT breast: Spot compression views (CC ). True ML. Ultrasound to follow if abn ormality persists.
== END 2021-05-23 09:37 | disposition home or self-care (01) ==
LOC: RADSHAW 09:38
PROVIDERS: PCP Family Medicine; Visit Provider Family Medicine
DX: Z12.31 Encounter for screening mammogram for malignant neoplasm of breast (principal)
CPT/HCPCS: 77067

== ENCOUNTER 2021-06-07 08:31 | Outpatient (CLI) | payer MEDICAID, SELFPAY ==
--- NOTE | 2021-06-07 08:37 | US_ITS ---
WS: [id number] ADDITIONAL VIEWS BILATERAL MAMMOGRAM AND BILATERAL BREAST ULTRASOUND ADDITIONAL VIEWS BILATERAL MAMMOGRAM HISTORY: HONORIO ABNORMAL MAMMOGRAM COMPARISON: 05/23/2021, 07/20/2019 and 03/29/2018 Right breast: The asymmetry in the anterior central RIGHT breast persists. Asymmetry seen only on the CC projection. Ultrasound to follow. Left breast: Near complete resolution of the minimal asymmetry seen in the central LEFT breast on the CC projection only. Ultrasound to follow. BREAST ULTRASOUND RIGHT breast: Ultrasound directed posterior to the nipple and into the upper outer quadrant. There is dense fibroglandular tissue and shadowing along the scar. No mass identified. The area of asymmetry and distortion correlates with the scar. LEFT breast: Ultrasound directed posterior to the nipple and into the 12-11 o'clock axis. No abnormal ity is identified. US/US breast BI limited* [id number] IMPRESSION: BI-RADS: 2-Benign FOLLOW UP: 1 Year Follow-up The asymmetry within the RIGHT breast does appear to correspond to the scar wit h no underlying mass.
== END 2021-06-07 08:32 | disposition home or self-care (01) ==
LOC: RADSHAW 08:33
PROVIDERS: PCP Family Medicine; Visit Provider Family Medicine
DX: R92.8 Other abnormal and inconclusive findings on diagnostic imaging of breast (principal)
CPT/HCPCS: 76642; 77066

== ENCOUNTER → 2021-07-25 15:01 | Outpatient (BNVA) | payer MEDICAID, SELFPAY | PROVIDERS: PCP Family Medicine; Visit Provider Internal Medicine Critical Care Medicine | DX: Z01.812 Encounter for preprocedural laboratory examination (principal) | CPT/HCPCS: 87635 ==

== ENCOUNTER 2021-07-31 10:03 | Outpatient (CLI) | payer MEDICAID, SELFPAY ==
--- NOTE | 2021-07-31 13:33 | PFTS_ITS ---
Date of Study:07/31/21 Date of Dictation: MECHANICS: Forced vital capacity (FVC) is reduced. Forced expiratory volume in one second (FEV1) is reduced. FEV1/FVC is normal. FLOW VOLUME LOOP: Narrow. LUNG VOLUMES: Total lung capacity (TLC) is normal. Residual volume (RV) is normal. DIFFUSING CAPACITY FOR CARBON MONOXIDE: Moderately reduced. INTERPRETATION: The pulmonary function tests are consistent with nonspecific ventilatory limitations. The postbronchodilator spirometry is consistent with moderate restriction. Lung volumes are not consistent with restrictive lung disease. This is likely secondary to a combination of obstructive and restrictive ventilatory defects. There is no significant postbronchodilator response. Lung volumes are normal. Gas exchange (DLCO) is moderately reduced. MTDD
== END 2021-07-31 10:04 | disposition home or self-care (01) ==
LOC: RT 10:05
PROVIDERS: PCP Family Medicine; Visit Provider Internal Medicine Critical Care Medicine
DX: J96.11 Chronic respiratory failure with hypoxia (principal)
CPT/HCPCS: 94060; 94618; 94726; 94729; J7611

== ENCOUNTER 2021-08-01 10:27 | Outpatient (CLI) | payer MEDICAID, SELFPAY ==
--- NOTE | 2021-08-01 11:00 | USCV_ITS ---
Alexia Soto Age: 56 Gender: F : 1965 Exam Date: 08/01/2021 10:52 Ordering Phys: Laurent Perez MD Technologist: Angelina London Exam Location: [facility] Indication: PVD Risk Factors: Previous Vascular Surgery: RIGHT LEFT Waveform Velocity (cm/s) Velocity (cm/s) Waveform Triphasic 133.1 Iliac Prox 113.3 Triphasic Triphasic 126.2 Iliac Mid 102.0 Triphasic Triphasic 121.9 Iliac Distal 99.8 Triphasic Triphasic 103.6 PERSONAL DEVELOPMENT MENTOR 117.0 Triphasic Triphasic 121.3 SFA Prox 95.9 Triphasic Triphasic 110.3 SFA Mid 92.6 Triphasic Triphasic 98.1 SFA Dist 80.5 Triphasic Triphasic 59.5 POP 49.4 Triphasic Triphasic 44.4 COMMUNITY SPECIALIST 79.5 Triphasic Triphasic 86.3 DPA 87.2 Triphasic 1.0 JIN 1.0 FINDINGS Normal resting ABIs bilaterally Normal arterial Doppler waveforms and velocities CONCLUSIONS No evidence of any significant arterial obstruction, based on the above findings. Dr Mayito Medeiros MD [facility] (Electronically Signed) Final Date: 01 August 2021 20:04 S
== END 2021-08-01 10:28 | disposition home or self-care (01) ==
LOC: RAD 10:30
PROVIDERS: PCP Family Medicine; Visit Provider Internal Medicine Critical Care Medicine
DX: I73.9 Peripheral vascular disease, unspecified (principal)
CPT/HCPCS: 93925

== ENCOUNTER 2021-11-22 13:17 | Outpatient (CLI) | payer MEDICAID, SELFPAY ==
--- NOTE | 2021-11-22 09:30 | MR_ITS ---
WS: [id number] MRI LUMBAR SPINE NONCONTRAST HISTORY: LEFT leg numbness and pain. Surgery 1 year ago. COMPARISON: 02/14/2021 TECHNIQUE: Sagittal and axial multisequence imaging is submitted. Normal posterior alignment. Degenerative changes along the endplates of L5-S1. No acute fracture. No marrow edema. Disc desiccation is mild without loss of height at L5-S1. The remaining discs are preserved. Conus terminates normally at L1-2 disc level. L1-L2: Normal. L2-L3: Normal. L3-L4: Mild ligamentum flavum hypertrophy and facet arthritis. No stenosis. L4-L5: Mild annular disc bulging with fluid in the facet joints bilaterally. Very mild encroachment u gilbert the central thecal sac. Mild encroachment upon the subarticular recesses. No foraminal stenosis. There is a small hemilaminectomy defect on the LEFT. L5-S1: Mild annular disc bulge with osteophytic ridging. Disc is asymmetrically bulging to the RIGHT. No significant stenosis. Paraspinal soft tissues are normal. Very mild enlargement of the spleen and liver. MR/MR lumbar spine wo con* [id number] IMPRESSION: 1. No high-grade central or foraminal stenosis. 2. Focal small LEFT hemilaminectomy defect at L4-5. 3. Very mild central and subarticular recess encroachment at L4-5. Minimal pro gression since the prior study. 4. Mild asymmetric disc bulging to the RIGHT at L5-S1. Minimal encroachment up on the exiting L5 nerve root. 5. Increased fluid in the facet joints and at L4-5.
== END 2021-11-22 13:18 | disposition home or self-care (01) ==
PROVIDERS: PCP Family Medicine; Visit Provider Orthopaedic Surgery
DX: M48.062 Spinal stenosis, lumbar region with neurogenic claudication (principal); R20.0 Anesthesia of skin; M51.27 Other intervertebral disc displacement, lumbosacral region
CPT/HCPCS: 72148

== ENCOUNTER → 2021-11-26 09:42 | Outpatient (BNVA) | payer MEDICAID, SELFPAY | PROVIDERS: PCP Family Medicine; Visit Provider Orthopaedic Surgery | DX: M48.062 Spinal stenosis, lumbar region with neurogenic claudication (principal) | CPT/HCPCS: 99214 ==

== ENCOUNTER 2021-12-04 20:00 | Outpatient (CLI) | payer MEDICAID, SELFPAY | END 2021-12-04 20:01 | disposition home or self-care (01) | LOC: SLEEP 12-05 06:19 | PROVIDERS: PCP Family Medicine; Visit Provider Internal Medicine Critical Care Medicine | DX: G47.33 Obstructive sleep apnea (adult) (pediatric) (principal) | CPT/HCPCS: 95811 ==

== ENCOUNTER → 2022-07-01 16:12 | Outpatient (BNVA) | payer MEDICAID, SELFPAY | PROVIDERS: PCP Family Medicine; Visit Provider Orthopaedic Surgery | DX: M48.062 Spinal stenosis, lumbar region with neurogenic claudication (principal); M47.816 Spondylosis without myelopathy or radiculopathy, lumbar region | CPT/HCPCS: 72110; 99214 ==

== ENCOUNTER 2022-09-30 14:13 | Outpatient (CLI) | payer MEDICAID, SELFPAY ==
--- NOTE | 2022-09-30 15:15 | MR_ITS ---
WS: [id number] MRI LUMBAR SPINE NONCONTRAST TECHNIQUE: Sagittal T1, T2 and STIR imaging. Axial T1 and T2 imaging. CLINICAL INFORMATION: pain ALSO HERE FOR CT LUNG SCREENING COMPARISON: MRI November 22, 2021 FINDINGS: Mild lumbar curve. No acute compression. No high-grade central canal stenosis. Prior hemilaminectomy LEFT L4-L5. L1-L2: Mild facet arthropathy. Spinal canal and foramen are patent. L2-L3: No significant disc bulging. Spinal canal and foramen are patent. Mild facet arthropathy. L3-L4: Mild annular bulging with slight effacement of ventral thecal sac. Mild facet arthropathy. Spi nal canal and foramen are patent. L4-L5: Mild annular bulging with mild central canal stenosis. Slight impingement LEFT subarticular re cess and traversing LEFT L5 nerve root. This is unchanged from previous. Prior LEFT micro hemilaminec cat. Foramen are patent. Moderate facet arthropathy. L5-S1: Mild annular bulging. Slight effacement of ventral thecal sac. Slight impingement traversing R IGHT greater than LEFT S1 nerve roots. Foramen are patent. Moderate facet arthropathy. Adrenal glands are normal. Visualized pelvic bony structures: Normal. Paravertebral soft tissues: Normal. Hepatomegaly partially visualized. MR/MR lumbar spine wo con* [id number] IMPRESSION: Overall no significant changes compared to November 22, 2021 1. Mild lumbar curve. No acute compression. Prior LEFT microlaminectomy L4-L5. 2. Mild annular bulging L4-L5 with slight narrowing of the subarticular recess LEFT greater than RIGHT unchanged. Foramen are patent. 3. Annular bulging L5-S1 with slight impingement traversing RIGHT S1 nerve you t in the subarticular recess. This is unchanged compared to previous. 4. Moderate facet arthropathy L4-L5 and L5-S1.
== END 2022-09-30 14:14 | disposition home or self-care (01) ==
LOC: RAD 14:20
PROVIDERS: PCP Family Medicine; Visit Provider Orthopaedic Surgery
DX: M48.062 Spinal stenosis, lumbar region with neurogenic claudication (principal); M51.26 Other intervertebral disc displacement, lumbar region
CPT/HCPCS: 72148

== ENCOUNTER 2022-09-30 14:19 | Outpatient (CLI) | payer MEDICAID, SELFPAY ==
--- NOTE | 2022-09-30 14:32 | CT_ITS ---
WS: [id number] LDCT LUNG CANCER SCREENING HISTORY: TOBACCO USE; TECHNIQUE: Axial imaging performed from the apices to 1 cm below the costophrenic angles. Coronal and sagittal reformats are submitted with axial MIP series. All CT scans at [facility] use at least one of these dose optimization techniques: automated exposure control; mA and/or kV adjustment per patient size (includes targeted exams where dose is matched to clinical indication); or iterativ e reconstruction. DLP: 75.80 mGy.cm DIvol: Mean CTDIvol: 1.60 (mGy) COMPARISON: 04/25/2021 Diagnostic quality: Satisfactory Lungs: Lungs are clear. No nodule or mass. Small amount of mucus in the proximal bronchial tree. Mild emphysema. Heart: Normal size heart with no pericardial effusion.. Other findings: Mild aorta atherosclerosis. No aneurysm. There are a few small mediastinal and hilar lymph nodes. Normal size pulmonary artery. Hepatic steatosis. Liver is incompletely visualized but ap pears enlarged. Prior cholecystectomy. CT/CT lung screening [id number] IMPRESSION: LUNG-RADS: 1-Negative FOLLOW UP: 12 Month: Continue annual screening with LDCT OTHER FINDINGS (S MODIFIER): None.
== END 2022-09-30 14:20 | disposition home or self-care (01) ==
LOC: RAD 14:20
PROVIDERS: PCP Family Medicine; Visit Provider Family Medicine
DX: Z12.2 Encounter for screening for malignant neoplasm of respiratory organs (principal); F17.210 Nicotine dependence, cigarettes, uncomplicated; I70.0 Atherosclerosis of aorta
CPT/HCPCS: 71271

== ENCOUNTER → 2022-10-28 13:18 | Outpatient (BNVA) | payer MEDICAID, SELFPAY | PROVIDERS: PCP Family Medicine; Visit Provider Orthopaedic Surgery | DX: M48.062 Spinal stenosis, lumbar region with neurogenic claudication (principal) | CPT/HCPCS: 99214 ==

== ENCOUNTER 2022-11-05 12:36 | Outpatient (CLI) | payer MEDICAID, SELFPAY | END 2022-11-05 12:37 | disposition home or self-care (01) | LOC: RT 11-13 12:14 | PROVIDERS: PCP Family Medicine; Visit Provider Orthopaedic Surgery | DX: Z01.810 Encounter for preprocedural cardiovascular examination (principal) | CPT/HCPCS: 93005 ==

== ENCOUNTER 2022-11-12 13:30 | Observation (INO) | payer MEDICAID, SELFPAY ==
[2022-11-05 10:59] VITALS: BMI 34.1
--- NOTE | 2022-11-05 12:04 | ECG_ITS ---
[facility] Test Date: 2022-11-05 Pat Name: Alexia Soto Department: Room: Gender: Female [employer]visor [employer]: : 1965 Requested By: Kerry Flores Order Number: [id number] Harris MD: Mayito Medeiros M.D. Measurements Intervals [place] Rate: 63 P: 64 SD: 193 QRS: 96 QRSD: 107 T: 34 QT: 421 QTc: 431 Interpretive Statements SINUS RHYTHM POSSIBLE LEFT ATRIAL ENLARGEMENT [-0.1mV P-WAVE IN V1/V2] BORDERLINE RIGHT AXIS DEVIATION [QRS AXIS > 90] INCOMPLETE RIGHT BUNDLE BRANCH BLOCK [90+ ms QRS DURATION, TERMINAL R IN V1/V2, 40+ ms S IN I/aVL/V4/V5/V6] ST DEVIATION AND MODERATE T-WAVE ABNORMALITY, CONSIDER ANTEROLATERAL ISCHEMIA [-0.1+ mV T-WAVE IN V3-V6] Compared to ECG 04/07/2017 14:43:19 T-wave abnormality now present Possible ischemia now present Right ventricular hypertrophy no longer present ST (T wave) deviation no longer present Electronically Signed On 11-06-2022 0:13:54 CDT by Mayito Medeiros M.D. [id number]
[2022-11-05 12:07] LABS: Anion Gap 12.2 (5-19); Blood Urea Nitrogen 8 mg/dL (6-20); Calcium 8.9 mg/dL (8.5-10.5); Carbon Dioxide 27 mmol/L (22-29); Chloride 99 mmol/L (98-107); Glomerular Filtration Rate 127.6 mL/min (90-130); Glucose 149 mg/dL (65-115); Osmolality Calculated 279 mOsm/kg (285-295); Potassium 4.2 mmol/L (3.5-5.1); Sodium 134 mmol/L (136-145)
--- NOTE | 2022-11-05 12:30 | ANES.PREANE2 ---
Pre-Anesthetic Assessment Height/Weight: Height 1.65 m Weight 92.986 kg Preop Diagnosis: lumbar stenosis Operation Date: 11/12/22 11:40 Proposed Procedures p Open Spine Decompression: Open revision Lumbar Decompression L3/4 80162,L4/5 19144, L5/S1 81525 M48.062(Not Applicable) - Bruce Santizo, DO Familial anesthetic complications: None Social Tobacco and No alcohol Exam alert, oriented x 3, clear to auscultation bilaterally and regular rate & rhythm coarse breath sounds Airway Mallampati: Class III Dentition: false Pulmonary Chronic Obstructive Pulmonary Disease ( L NC continously) and Sleep Apnea Lungs haven't progressed in severity since previous procedure CV/HEM Stable Angina (work up revealed spasms (? printzmetals) - rare chest pains, mostly when she get very stressed) and Deep Vein Thrombosis GI Gastroesophageal Reflux Disease Metabolic Diabetes Mellitus and Thyroid Disease Anesthetic Plan ASA status: 4 Anesthesia: General Risk of > 500 ml blood loss (7ml/kg in children): No Medications/Allergies Home Medications Medication Instructions Recorded Confirmed Last Taken Type albuterol sulfate 90 mcg/actuation 2 puff inhalation Q6H PRN sob 11/10/19 11/05/22 03/24/21 History aerosol inhaler (ProAir HFA) cyanocobalamin (vitamin B-12) 1,000 mcg IM .monthly 11/10/19 11/05/22 03/20/21 History 1,000 mcg/mL injection solution ibuprofen 800 mg tablet 800 mg PO TID 11/10/19 11/05/22 03/24/21 History levothyroxine 100 mcg capsule 100 mcg PO DAILY 11/10/19 11/05/22 03/24/21 History methocarbamol 500 mg tablet 500 mg PO TID 11/10/19 11/05/22 03/24/21 History nitroglycerin 0.6 mg sublingual 0.6 mg sublingual Q5M PRN Chest 11/10/19 11/05/22 03/11/21 History tablet (Nitrostat) Pain pregabalin 75 mg capsule (Lyrica) 75 mg PO BID 11/10/19 11/05/22 03/24/21 History trazodone 50 mg tablet 50 mg PO DAILY 11/10/19 11/05/22 03/24/21 History pantoprazole 40 mg tablet,delayed 40 mg PO DAILY 10/05/20 11/05/22 03/24/21 History release methadone 40 mg soluble tablet 110 mg PO DAILY 10/08/20 11/05/22 03/25/21 04:30 History methadone 5 mg tablet 5 mg PO DAILY 10/08/20 10/28/22 03/25/21 04:30 History lisinopril 10 mg tablet 20 mg PO DAILY 02/19/21 11/05/22 03/24/21 History escitalopram oxalate 20 mg tablet 20 mg PO DAILY 03/25/21 11/05/22 03/25/21 04:30 History metformin 500 mg tablet 500 mg PO DAILY 05/09/21 11/05/22 Unknown History fluticasone propionate 110 1 puff inhalation BID 30 days #12 10/14/22 11/05/22 Unknown Rx mcg/actuation HFA aerosol inhaler grams (Flovent HFA) furosemide 20 mg tablet 20 mg PO DAILY #30 tabs 10/14/22 11/05/22 Unknown Rx umeclidinium 62.5 mcg-vilanterol 1 inh inhalation DAILY #60 ea 10/14/22 11/05/22 Unknown Rx 25 mcg/actuation powdr for inhalation (Anoro Ellipta) Allergies Allergy/AdvReac Type Severity Reaction Status Date / Time No Known Allergies Allergy Verified 10/28/22 13:22 [facility] Anesthesia Medical History Anemia Bipolar 1 disorder Blood in stool Chronic obstructive pulmonary disease Depression with anxiety Diabetes Glaucoma Hyperlipidemia Hypertension Hypothyroidism Surgical History History of bladder surgery History of laparoscopic cholecystectomy History of tubal ligation History of vaginal hysterectomy (~2005) Family History Family/Other Cancer Social History Smoking and tobacco status: current every day smoker cigarettes Packs smoked per day: 1 Years cigarettes smoked: 38 Alcohol intake: never Lives independently: Yes Household members: none Marital status: Legally Current occupational status: disabled Current gender identity: Female Data Anesthesia 11/05/22 11:36 BMP 11/05/22 11:36 Sodium 134 L Potassium 4.2 Chloride 99 Carbon Dioxide 27 BUN 8 Creatinine 0.5 Glucose 149 H Calcium 8.9 Cardiac Studies: Echocardiogram Ultrasound 04/03/20
[2022-11-12] VITALS (20 sets, daily range): BP systolic 96–159; BP diastolic 48–91; PULSE 71–96; RESP 16–25; TEMP 36.2–36.7; O2SAT 92–97; BMI 34.9
--- NOTE | 2022-11-12 10:23 | W.PM.OPSUD ---
Surgery/Procedure H&P Update DATE OF PROCEDURE: November 12, 2022 DATE H&P PERFORMED: 10/28/22 H&P UPDATE INFORMATION: I have reviewed H&P completed within last 30 days, I have examined patient prior to procedure and No changes to prior documentation PREOP DIAGNOSIS: Lumbar stenosis with neurogenic claudication PLANNED PROCEDURE: Operation Date: 11/12/22 15:00 Proposed Procedures p Open Spine Decompression: Open revision Lumbar Decompression L3/4 96923,L4/5 42572, L5/S1 53658 M48.062(Not Applicable) - Bruce Santizo DO
[2022-11-12] MEDS: sodium chloride 0.9% 1,000 ML 30 ML IV (10:37)
[2022-11-12] MEDS: ceFAZolin 2,000 MG in sodium chloride 0.9% (plus) 50 ML 100 MG IV ×2 (10:53→17:33)
[2022-11-12 11:08] LABS: Glucose Point of Care 151 mg/dL (70-110)
[2022-11-12] MEDS: lidocaine-epi 1% 20 mL INJ INJECTION (11:17)
[2022-11-12] MEDS: vancomycin 1,000 MG SDV 1000 MG XX (11:17)
--- NOTE | 2022-11-12 12:35 | XR_ITS ---
WS: [id number] EXAMINATION: XR lumbar spine 2-3V* [id number] REASON FOR EXAM: OR PICS COMPARISON: None available. ORDER DATE: 11/12/2022 12:35 PM FINDINGS: There are surgical instrument superimposing the mid lumbar spine in the anteroposterior projection on the single C-arm view presented. IMPRESSION: Total fluoroscopy time 1.7 seconds
--- NOTE | 2022-11-12 12:36 | P.ANESUD_ITS ---
Pre-Anesthetic Update Pre-Anesthetic Assessment: Date of Surgery/Procedure: 11/12/22 Preop Jeni gnosis: Lumbar stenosis with neurogenic claudication Proposed Procedure: Operation Date: 11/12/22 15:00 Proposed Procedures p Open Spine Decompression: Open revision Lumbar Decompression L3/4 78388,L4/5 74498, L5/S1 75112 M48.062(Not Applicable) - Bruce Santizo, DO Any changes to Pre-Anesthetic Assessment?: No Last Intake: Intake Last Liquid Date 11/11/22 Last Liquid Time 22:45 Last Solid Date 11/11/22 Last Solid Time 18:00 Vitals: Temperature 97.2 F L 11/12/22 10:34 Temperature Source Temporal Artery S can 11/12/22 10:34 Pulse Rate 96 11/12/22 10:34 Respiratory Rate 18 11/12/22 10:34 Blood Pressure 146/62 11/12/22 10:34 Blood Pressure Micheline n 90 11/12/22 10:34 Pulse Oximetry 94 11/12/22 10:34 Oxygen Delivery Me thod Nasal Cannula 11/12/22 10:37 Oxygen Flow Rate 3 11/12/22 10:37 Exam: Pre-Anes Outpt Exam: alert, oriented x 3, clear to auscultation bilaterally and regular rate & rhythm Cardiac Studies: Echocardiogram Ultrasound 04/03/20
[2022-11-12] MEDS: HYDROmorphone 1 mg/mL INJ 1 mL 0.5 MG IVP ×2 (13:11→13:24)
--- NOTE | 2022-11-12 13:24 | PM.OP ---
Operative Report Date of procedure: November 12, 2022 Pre-op diagnosis: Preop Diagnosis Lumbar stenosis with neurogenic claudication Post-op diagnosis: same Procedure done: 1. Revision L3/4 laminectomy with partial facetectomies 2. Revision L4/5 laminectomy with partial facetectomy 3. Revision L5/S1 Laminectomy with partial facetectomy Surgeon: Bruce Santizo Compensation/Benefits Specialist: Odell Evans Compensation/Benefits Specialist: The escrow assistant, Odell Evans, PAC was needed for his expertise under the microscope. He was important and necessary throughout the procedure to complete in a safe and timely manner. He assisted with patient positioning prepping and draping tissue retraction suctioning of the operative field protection of the dural sac and tissue closure Estimated blood loss (mL): 50 Procedure: 1. Revision L3/4 laminectomy with partial facetectomies 2. Revision L4/5 laminectomy with partial facetectomy 3. Revision L5/S1 Laminectomy with partial facetectomy Patient brought the operative suite after undergoing anesthesia was placed in prone position. All areas impingement well-padded. Patient was prepped draped normal sterile fashion. Skin incision made over the L3-S1 level. Subperiosteal dissection was made out to the facet joints. Patient had previous laminectomy sites done on the left side of L3-L4 and L5. Attention was first brought to the L5-S1 level. Spinous processes were bent down with the Kerrison rongeur of L5. High-speed bur was then used to thin out the lamina and medial aspect of facet joints. Kerrison rongeur on the left side was used to undermine the remaining lamina being careful of scar tissue the medial aspect of facet joint was taken down bilaterally using the Kerrison rongeur and high-speed bur. S1 nerves were traced out the distal aspect around the S1 pedicles bilaterally. And the L5 nerves were traced out the L4-5 foramens bilaterally felt to be adequate decompressed. Next attention was brought to the L4-5 level the rongeur was used to bite down the spinous process of L4 the lamina was thinned out with a high-speed bur and medial aspects of the facet joint were taken down with a high-speed bur. The Kerrison rongeur was used to take out the remaining lamina as well as the medial aspect of the facet joints. On the left side is again careful to work on scar tissue. The L5 nerve was traced around the L5 pedicle bilaterally felt to be adequately decompressed and the L4 nerve root was traced out the L4-5 foramen felt to be adequately decompressed. Was brought to the L3-4 level. The spinous process of L3 was made down rongeur. The lamina was thinned out with a high-speed bur. The Kerrison rongeur was used to take out the remaining lamina. Medial aspects of the facet joints were taken down with the high-speed bur. Again on the left side the scar tissue was carefully teased off of the facet joint and the medial aspect of sed rate were bit down bilaterally. The L4 nerve was traced from the L4 pedicles bilaterally felt to be adequately decompressed and the L3 nerves were traced out the L3-4 foramen felt to be adequately decompressed. Wounds were irrigated vancomycin powder was placed deep drain was placed and wounds closed in layered fashion with 0 Vicryl 2-0 Vicryl and Monocryl suture. Sterile dressings applied patient was then transferred to the PACU in stable condition.
--- NOTE | 2022-11-12 13:35 | SUR.PHASEI ---
1256 pt has bilat SCDs on and pump on and working
[2022-11-12 14:59] LABS: Glucose Point of Care 211 mg/dL (70-110)
--- NOTE | 2022-11-12 15:33 | ANE.PACU2 ---
Inpatient post-anesthesia follow up: Airway intact: Yes Vital signs: Temperature 97.5 F Pulse Rate 75 Respiratory Rate 16 Blood Pressure 128/74 Pulse Oximetry 94 Oxygen Delivery Me thod Nasal Cannula Oxygen Flow Rate 3 Fraction of Inspir ed Oxygen Hydration adequate: Yes Nausea and vomiting: No Pain level: 4 Mental status: Baseline
[2022-11-12] MEDS: ipratropium-albuterol 3 mL Neb INHALATION ×2 (16:02→20:51)
[2022-11-12] MEDS: docusate sodium 100 mg Capsule PO (17:26)
[2022-11-12] MEDS: pregabalin 75 mg Capsule PO (17:26)
[2022-11-12] MEDS: HYDROcodone-acetaminophen 10-325 mg Tablet PO ×2 (17:26→21:53)
[2022-11-12] MEDS: budesonide 0.5 mg/2 mL Neb INHALATION (20:51)
[2022-11-12] MEDS: ibuprofen 800 mg tablet PO (21:54)
[2022-11-12] MEDS: ketorolac 30 mg/mL INJ IVP (23:50)
[2022-11-12] MEDS: lactated ringers 1,000 ML 90 ML IV (23:50)
[2022-11-13 00:39] VITALS: BP 113/71
[2022-11-13] MEDS: ceFAZolin 2,000 MG in sodium chloride 0.9% (plus) 50 ML 100 MG IV ×2 (00:49→08:30)
[2022-11-13 03:48] VITALS: BP 121/70; PULSE 67; RESP 15; TEMP 36.4; O2SAT 97
[2022-11-13] MEDS: HYDROcodone-acetaminophen 10-325 mg Tablet PO ×3 (04:18→11:40)
--- NOTE | 2022-11-13 06:58 | PM.PN ---
Subjective Subjective: POD 1 Patient resting comfortably. Reports leg pain has improved. Reports some mild back pain. Denies any chest pain, shortness of breath, headaches. Vitals/I&O/Wt Last Vital Signs Temp 97.6 F 11/13/22 03:48 Pulse 67 11/13/22 03:48 Resp 15 11/13/22 03:48 BP 121/70 11/13/22 03:48 Pulse Ox 97 11/13/22 03:48 O2 Del Method Nasal Cannula 11/13/22 03:48 O2 Flow Rate 2.5 11/13/22 03:48 11/12/22 11/12/22 11/13/22 14:59 22:59 06:59 Intake Total 150 / 150 170 / 320 50 / 370 Output Total 600 / 600 520 / 1120 200 / 1320 Balance -450 / -450 -350 / -800 -150 / -950 Weight last 48 hrs Weight 210 lb Physical Exam Narrative: Patient presents alert and oriented x3 with a good general appearance normal mood and affect. Normal coordination normal stability. Mild tenderness around the incisional site with the incision appear to be clean and dry. Hemovac intact. No signs of erythema or drainage. No signs of infection. Patient denies any fevers or chills. 5/5 motor strength both lower extremities with negative straight leg raise bilaterally. Calves are supple no medial thigh tenderness. Pulses are 2+ at the dorsalis pedis and posterior tibial region. Good capillary refill throughout normal sensation light touch both lower extremities. Urinary Catheter Management: Bridges: Cath Placed During This Visit: yes Reason for Continuing Indwelling Catheter: Perioperative Use in Selected Surgeries Urinary Catheter Date of Insertion: 11/12/22 Urinary Catheter Time of Insertion: 11:06 Data 11/05/22 11:36 A&P Assessment and plan (1) Status post lumbar laminectomy: We will discontinue the Hemovac drain. Encourage incentive spirometry for pulmonary toilet at home. Will discharge home later this morning after physical therapy assesses. We will have her follow-up in the office in 1 week's time for a wound check. She will call if she is having problems. Discussed no bending lifting or twisting. Attestations Medical Necessity Statement*: Home later this morning Coding Level of Care Code Acute Code for Chg Fwd Diagnoses Status post lumbar laminectomy Z98.890
[2022-11-13 07:38] VITALS: BP 126/56; PULSE 80; RESP 18; TEMP 36.3; O2SAT 98
[2022-11-13] MEDS: ipratropium-albuterol 3 mL Neb INHALATION (07:57)
[2022-11-13] MEDS: budesonide 0.5 mg/2 mL Neb INHALATION (07:57)
[2022-11-13 08:00] VITALS: PULSE 84; RESP 16; O2SAT 96
[2022-11-13] MEDS: levothyroxine 100 mcg Tablet PO (08:29)
[2022-11-13] MEDS: metformin 500 mg Tablet PO (08:29)
[2022-11-13] MEDS: pregabalin 75 mg Capsule PO (08:29)
[2022-11-13] MEDS: pantoprazole DR 40 mg Tablet PO (08:30)
[2022-11-13] MEDS: FUROsemide 20 mg Tablet PO (08:30)
[2022-11-13] MEDS: docusate sodium 100 mg Capsule PO (08:30)
[2022-11-13] MEDS: escitalopram 10 mg Tablet 20 MG PO (08:30)
[2022-11-13] MEDS: lisinopril 20 mg Tablet PO (08:30)
[2022-11-13 11:44] VITALS: BP 131/79; PULSE 68; RESP 18; TEMP 36.4; O2SAT 98
[2022-11-13 11:52] VITALS: BP 131/79; PULSE 68; RESP 18; TEMP 36.4; O2SAT 98
--- NOTE | 2022-11-13 12:25 | PC.CHAP ---
Pastoral Care Encounter/Spiritual Assessment Type of Contact [] Declined cook starch visit [] Patient/Family/Request visit [] Outpatient visit [] Follow-up visit [] Physician referral [] Code/Alert [x] Routine visit [] Staff referral [] Actively dying [] Patient sleeping [] Family support [] [] Out of room [] Palliative care [] [x] Receiving care in room [] Pre-surgical visit [] Trauma [] Long length of stay [] ICU visit [] Other: Relational/Emotional Strength [x] Patient feels connected with others/family/visitors/staff [] Distress [] Loneliness/isolation [] Abandonment Spirituality of Patient [x] Person of Ara [] Attends Muslim of their Ara [x] Believes in Prayer [] Reads Bible or Latter Day materials [] There are Spiritual issues to be addressed Customer Service Manager Interventions [x] Prayer [x] Active listening [x] Non-anxious presence [x] Spiritual/emotional support [] Crisis/trauma care [x] Spiritual counseling [] Bereavement support [] Provided bereavement packet [] Provided Bible/devotional materials [] Provided toy/stuffed animal, coloring book to patient or family member [] Provided Communion [] Anointing/[place] [] Salvation [x] Completed spiritual assessment [] Other: Impact on Illness or Injury [] Angry [] Fearful [] Anxious [] Often cries [] Exhaustion [] Unable to work [] Unable to attend mandaen [] Unable to walk/stand [] Unable to read [] Unable to drive [] Unable to eat/drink [] Unable to sleep [] Unable to be with family [] Patient intubated [] Other: Summary back surgery in some pain has a good attitude going home Time spent with patient 10 mins
== END 2022-11-13 13:09 | disposition home or self-care (01) ==
LOC: MEDSURG 13:35
PROVIDERS: Anesthesiology; Admitting Provider Orthopaedic Surgery; PCP Family Medicine; Visit Provider Orthopaedic Surgery
PROC: (CPT 63001; principal; 2022-11-12 14:50)
DX: M48.062 Spinal stenosis, lumbar region with neurogenic claudication (principal); E11.9 Type 2 diabetes mellitus without complications; E78.5 Hyperlipidemia, unspecified; I10 Essential (primary) hypertension; E03.9 Hypothyroidism, unspecified; K21.9 Gastro-esophageal reflux disease without esophagitis; I45.10 Unspecified right bundle-branch block; J44.9 Chronic obstructive pulmonary disease, unspecified; F17.210 Nicotine dependence, cigarettes, uncomplicated; Z79.84 Long term (current) use of oral hypoglycemic drugs; Z86.718 Personal history of other venous thrombosis and embolism
CPT/HCPCS: 63047; 63048 ×2; 36416; 51702; 72100; 76000; 80048; 82962; 94640; 97116; 97161; G0378; J0690; J1100; J1170; J1885; J2250; J2405; J2704; J3010; J3370; J3490; J7030; J7120; J7626

== ENCOUNTER → 2022-11-25 13:27 | Outpatient (BNVA) | payer MEDICAID, SELFPAY | PROVIDERS: PCP Family Medicine; Visit Provider Physician Assistant | DX: Z98.890 Other specified postprocedural states (principal) | CPT/HCPCS: 99024 ==

== ENCOUNTER → 2022-12-02 12:57 | Outpatient (BNVA) | payer MEDICAID, SELFPAY | PROVIDERS: PCP Family Medicine; Visit Provider Physician Assistant | DX: Z98.890 Other specified postprocedural states (principal) | CPT/HCPCS: 99024 ==

== ENCOUNTER → 2023-01-08 13:22 | Outpatient (BNVA) | payer MEDICAID, SELFPAY | PROVIDERS: PCP Family Medicine; Visit Provider Physician Assistant | DX: Z98.890 Other specified postprocedural states (principal) | CPT/HCPCS: 99024 ==

== ENCOUNTER → 2023-07-09 10:10 | Outpatient (BNVA) | payer MEDICAID, SELFPAY | PROVIDERS: PCP Family Medicine; Visit Provider Podiatrist Foot & Ankle Surgery | DX: E11.42 Type 2 diabetes mellitus with diabetic polyneuropathy; L60.3 Nail dystrophy; G62.9 Polyneuropathy, unspecified; M76.61 Achilles tendinitis, right leg; Z79.84 Long term (current) use of oral hypoglycemic drugs | CPT/HCPCS: 11721; 73630; 99203 ==

== ENCOUNTER → 2024-03-21 14:40 | Outpatient (BNVA) | payer MEDICAID, SELFPAY | PROVIDERS: PCP Family Medicine; Visit Provider Surgery | DX: K42.9 Umbilical hernia without obstruction or gangrene (principal); K43.9 Ventral hernia without obstruction or gangrene | CPT/HCPCS: 99204 ==

== ENCOUNTER → 2024-04-01 11:19 | Outpatient (BNVA) | payer MEDICAID, SELFPAY | PROVIDERS: PCP Family Medicine; Visit Provider Family Medicine | DX: Z01.818 Encounter for other preprocedural examination (principal); I45.10 Unspecified right bundle-branch block; I49.8 Other specified cardiac arrhythmias | CPT/HCPCS: 80053; 83036; 85025; 93005 ==

== ENCOUNTER 2024-04-07 08:26 | Day surgery (SDC) | payer MEDICAID, SELFPAY ==
[2024-04-07] VITALS (10 sets, daily range): BP systolic 133–161; BP diastolic 67–86; PULSE 70–81; RESP 16–20; TEMP 36.2–36.3; O2SAT 3–97; BMI 32.9
--- NOTE | 2024-04-07 08:48 | P.ANESASSM_ITS ---
Pre-Anesthetic Assessment Height/Weight: Height 5 ft 5 in Weight 198 lb Temp Pulse Resp BP Pulse Ox O2 Del Method 97.4 F L 70 18 137/67 95 Room Air 04/07/24 08:47 04/07/24 08:47 04/07/24 08:47 04/07/24 08:47 04/07/24 08:47 04/07/24 08:47 Preop Diagnosis: Cholecystitis Operation Date: 04/07/24 11:05 Proposed Procedures p Laparoscopic Ventral Hernia Repair with mesh 51069, K49.9(Not Applicable) - Manuel Naqvi DO Familial anesthetic complications: None Was Beta Radha taken within 24 hours: N/A Was Clonidine taken within 24 hours: N/A Social Tobacco and No alcohol Exam alert, oriented x 3 and regular rate & rhythm Diminished breath sounds Airway Submandibular: within normal limits Cervical ROM: within normal limits Mallampati: Class III Dentition: false Anesthetic Plan ASA status: 3 Anesthesia: General Other: No prior issues with anesthesia NPO since midnight Hypertension on lisinopril and Lasix Labs 04/01 reviewed and assessable for surgery Methadone taken this a.m. GERD on pantoprazole Type 2 diabetes, AM BS will be drawn Mets<4 on 3L O2 at baseline EKG showing sinus rhythm with RBBB Plan for GETA Medications/Allergies Home Medications Medication Instructions Recorded Confirmed Last Taken Type albuterol sulfate 90 mcg/actuation 2 puff inhalation Q6H PRN sob 11/10/19 04/06/24 04/07/24 04:00 History aerosol inhaler (ProAir HFA) cyanocobalamin (vitamin B-12) 1,000 mcg IM .monthly 11/10/19 04/06/24 04/06/24 History 1,000 mcg/mL injection solution ibuprofen 800 mg tablet 800 mg PO TID 11/10/19 04/06/24 04/03/24 History levothyroxine 100 mcg capsule 100 mcg PO DAILY 11/10/19 04/06/24 04/06/24 History methocarbamol 500 mg tablet 500 mg PO TID 11/10/19 04/06/24 04/06/24 History nitroglycerin 0.6 mg sublingual 0.6 mg sublingual Q5M PRN Chest 11/10/19 04/06/24 10/21/22 History tablet (Nitrostat) Pain pregabalin 75 mg capsule (Lyrica) 75 mg PO BID 11/10/19 04/06/24 04/06/24 History trazodone 50 mg tablet 50 mg PO DAILY 11/10/19 04/06/24 11/04/22 History pantoprazole 40 mg tablet,delayed 40 mg PO DAILY 10/05/20 04/06/24 04/06/24 History release methadone 40 mg soluble tablet 110 mg PO DAILY 10/08/20 04/06/24 04/07/24 04:00 History lisinopril 10 mg tablet 20 mg PO DAILY 02/19/21 04/06/24 04/06/24 History escitalopram oxalate 20 mg tablet 20 mg PO DAILY 03/25/21 04/06/24 04/06/24 History metformin 500 mg tablet 500 mg PO DAILY 05/09/21 04/06/24 04/06/24 History fluticasone propionate 110 1 puff inhalation BID #12 grams 02/26/24 04/06/24 04/06/24 Rx mcg/actuation HFA aerosol inhaler furosemide 20 mg tablet 20 mg PO DAILY #30 tabs 02/26/24 04/06/24 04/06/24 Rx fluticasone fur. 200 mcg-umeclid 1 inh inhalation DAILY 04/01/24 04/06/24 04/06/24 History 62.5 mcg-vilant 25 mcg inhalat.powder (Trelegy Ellipta) ropinirole 0.25 mg tablet 0.25 mg PO DAILY 04/01/24 04/06/24 04/06/24 History Allergies Allergy/AdvReac Type Severity Reaction Status Date / Time No Known Allergies Allergy Verified 04/07/24 08:41 [facility] Anesthesia Medical History Diabetes Blood in stool Hypothyroidism Anemia Chronic obstructive pulmonary disease Depression with anxiety Hypertension Hyperlipidemia Glaucoma Bipolar 1 disorder Surgical History History of laparoscopic cholecystectomy History of bladder surgery History of vaginal hysterectomy (~2005) History of tubal ligation Family History Family/Other Cancer Social History Smoking and tobacco/nicotine status: former use of tobacco/nicotine Alcohol intake: never Substance/Drug Use: never Lives independently: Yes Household members: none Marital status: Legally Current occupational status: disabled 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
[2024-04-07] MEDS: sodium chloride 0.9% 1,000 ML 30 ML IV (08:51)
--- NOTE | 2024-04-07 09:20 | W.PM.OPSUD ---
Surgery/Procedure H&P Update DATE OF PROCEDURE: April 07, 2024 DATE H&P PERFORMED: 03/21/24 H&P UPDATE INFORMATION: I have reviewed H&P completed within last 30 days, I have examined patient prior to procedure and No changes to prior documentation PREOP DIAGNOSIS: Cholecystitis PLANNED PROCEDURE: Operation Date: 04/07/24 11:05 Proposed Procedures p Laparoscopic Ventral Hernia Repair with mesh [id number], K49.9(Not Applicable) - Manuel Naqvi DO
[2024-04-07] MEDS: ceFAZolin 2,000 mg SDV 2000 MG IVP (10:10)
[2024-04-07] MEDS: lidocaine-epi 2% PF 1:200,000 20 mL SDV XX (10:24)
--- NOTE | 2024-04-07 10:52 | PM.OP ---
Operative Report Date of procedure: April 07, 2024 Pre-op diagnosis: Incisional hernia Umbilical hernia Post-op diagnosis: same Procedure done: Laparoscopic repair of umbilical hernia with mesh Laparoscopic repair of incisional hernia with mesh Implants: 2 separate 11 cm round Ventralight mesh is Specimens removed/disposition: Umbilical hernia sac and contents Incisional hernia sac and contents Surgeon: Manuel Naqvi DO Anesthesia: General Estimated blood loss (mL): 5 Complications: None apparent Procedure: Patient was wheeled into the operative room and placed on the OR table in a supine position. Abdomen was inspected prepped and draped in usual sterile fashion. Time-out was performed and all present were in agreement. A 15 blade scalp was used to make a 5 millimeter incision left upper quadrant. A Veress needle was placed into the incision and intra-abdominal insufflation was brought to 15 millimeters of mercury. A 12 millimeter trocar was placed into the left lower quadrant. 2 separate hernias were identified. There is an umbilical hernia containing omental fat as well as an incisional hernia in the epigastrium containing omental fat and preperitoneal fat. Attention was first brought to the umbilical hernia. Omentum was pulled from the hernia bluntly and with sharp dissection. The energy but device was then used to cut out the hernia sac. Hernia defect measured 1.5 cm in diameter. An 11 cm Ventralight mesh attention was then brought to the incisional hernia in the epigastrium. A 6 inch ventral light mesh was placed into the abdomen and brought up through the umbilicus using an the Trent-Shruti. The mesh was then tacked in place in a double crown fashion. The skeleton of the mesh was removed via the left lower quadrant. The hernia sac was then removed from the abdomen via the left lower quadrant. Omentum and preperitoneal fat was removed from the hernia both bluntly and with sharp dissection. The energy but device was then used to cut out the hernia sac. Hernia defect measured 1.5 cm in diameter and was 7.5 cm cephalad from the umbilical hernia. A second 11 cm round Ventralight mesh was placed into the abdomen and brought up through the umbilicus using an the Trent-Shruti. The mesh was then tacked in place in a double crown fashion. The skeleton of the mesh was removed via the left lower quadrant. The hernia sac was then removed from the abdomen via the left lower quadrant. The left lower quadrant port site was closed with an 0 Vicryl suture in a Trent-Shruti in a [id number] fashion. Incisions were closed with 4 O Vicryl in a subcuticular interrupted fashion. Skin glue was applied. A dressing that included cotton balls and a Tegaderm was placed over the umbilicus. Patient tolerated the procedure well.
[2024-04-07] MEDS: ondansetron 2 mg/ML SDV 2 mL 4 MG IVP (11:15)
[2024-04-07] MEDS: HYDROmorphone 1 mg/mL INJ 1 mL 0.5 MG IVP (11:20)
[2024-04-07] MEDS: fentaNYL 50 mcg/mL INJ 2mL IVP (11:30)
[2024-04-07] MEDS: HYDROcodone-acetaminophen 10-325 mg Tablet 1 TAB PO (12:06)
--- NOTE | 2024-04-07 13:04 | SUR.PHASEII ---
PATIENT REFUSED TO PUT HER CLOTHS BACK ON, WORE GOWN HOME. REPORTS SHE WORE THEM HOME THE LAST TIME SHE WAS HERE FOR GALLBLADDER SURGERY. REPORTED THIS TO THE NURSING LOCK INSTALLER
--- NOTE | 2024-04-07 13:06 | ANE.PACU2 ---
Inpatient post-anesthesia follow up: Airway intact: Yes Vital signs: Temperature 97.2 F Pulse Rate 72 Respiratory Rate 16 Blood Pressure 142/77 Pulse Oximetry 3 Oxygen Delivery Me thod Nasal Cannula Oxygen Flow Rate 3 Fraction of Inspir ed Oxygen Hydration adequate: Yes Nausea and vomiting: No Pain level: 1 Mental status: Baseline
[2024-04-08 05:39] LABS: Glucose Point of Care 99 mg/dL (70-110)
== END 2024-04-07 13:06 | disposition home or self-care (01) ==
PROVIDERS: PCP Family Medicine; Visit Provider Surgery
PROC: 0WQF4ZZ Repair Abdominal Wall, Percutaneous Endoscopic Approach (ICD-10-PCS; CPT 49591; principal; 2024-04-07 11:05)
DX: K43.2 Incisional hernia without obstruction or gangrene (principal); K42.9 Umbilical hernia without obstruction or gangrene
CPT/HCPCS: 49591; 36416; 82962; 88302; C1781; J0690; J1170; J2405; J2704; J3010; J3490; J7030

== ENCOUNTER → 2024-04-18 11:07 | Outpatient (BNVA) | payer MEDICAID, SELFPAY | PROVIDERS: PCP Family Medicine; Visit Provider Surgery | DX: Z98.890 Other specified postprocedural states | CPT/HCPCS: 99024 ==

== ENCOUNTER 2024-11-23 13:24 | Outpatient (CLI) | payer MEDICAID, SELFPAY ==
--- NOTE | 2024-11-23 13:30 | MM_ITS ---
WS: [id number] BILATERAL 3D TOMOSYNTHESIS DIGITAL SCREENING MAMMOGRAPHY WITH CAD CLINICAL INFORMATION: SCREENING HISTORY: Screening mammogram. No current complaints. COMPARISON: 2020 TECHNIQUE: Bilateral CC and MLO views. FINDINGS: The breasts are composed of heterogeneous fibroglandular density tissue, which can limit the detection of small underlying mass lesions. No suspicious mass, asymmetry, calcifications, or architectural distortion. No evidence of malignancy. A few tiny incidental punctate calcifications. MM/MM [facility] tomosynthesis [id number] IMPRESSION: DENSITY:The breasts are heterogeneously dense, which may obscure small masses. BI-RADS: 2 - Benign FOLLOW UP: 1 Year Follow-up Recommend return to annual screening mammography.
== END 2024-11-23 13:25 | disposition home or self-care (01) ==
PROVIDERS: PCP Family Medicine; Visit Provider Family Medicine
DX: Z12.31 Encounter for screening mammogram for malignant neoplasm of breast (principal); R92.333 Mammographic heterogeneous density, bilateral breasts; R92.1 Mammographic calcification found on diagnostic imaging of breast
CPT/HCPCS: 77063; 77067

== ENCOUNTER 2025-01-02 17:19 | Outpatient (CLI) | payer MEDICAID, SELFPAY ==
--- NOTE | 2025-01-02 17:38 | CT_ITS ---
WS: [id number] LDCT LUNG CANCER SCREENING TECHNIQUE: Noncontrast CT of the chest with coronal and sagittal reformatted images. CLINICAL INFORMATION: HISTORY OF TOBACCO USE COMPARISON: 2022 DLP: 93.71 mGy.cm DIvol: Mean CTDIvol: 2.20 (mGy) All CT scans at [facility] use at least one of these dose optimization techniques: automated exposure control; mA and/or kV adjustment per patient size (includes targeted exams where dose is matched to clinical indication); or iterative reconstruction. FINDINGS: 4 mm nodule RIGHT upper lobe. Fibrosis in the lung apices. Cholecystectomy. Aortic calcification. No mediastinal or hilar lymphadenopathy. No axillary lymphadenopathy. Normal GE junction. Mild thoracic curve. CT/CT lung screening [id number] IMPRESSION: LUNG-RADS: 2-Benign Appearance or Behavior FOLLOW UP: 12 Month: Continue annual screening with LDCT
== END 2025-01-02 17:20 | disposition home or self-care (01) ==
LOC: RAD 17:20
PROVIDERS: PCP Family Medicine; Visit Provider Family Medicine
DX: Z12.2 Encounter for screening for malignant neoplasm of respiratory organs (principal); Z87.891 Personal history of nicotine dependence; R91.1 Solitary pulmonary nodule; J84.10 Pulmonary fibrosis, unspecified; Z90.49 Acquired absence of other specified parts of digestive tract; I70.0 Atherosclerosis of aorta; M43.8X4 Other specified deforming dorsopathies, thoracic region
CPT/HCPCS: 71271